=== PATIENT | female | born 1955 | race Caucasian/White ===

== ENCOUNTER 2016-10-12 20:42 | Emergency (ER) | payer MEDICARE ==
[~2016-10-12] VITALS: Ht 160 cm; Wt 158.2 kg
[~2016-10-12 20:42] MED LIST: ASPIRIN 81M81 MG/TA2 PO; HCTZ 25MG TAB25 MG PO; NO HOME MEDICATIONS; OMNICEF 300MG300 MG PO; PHENTERMINE15 MG PO; PLAVIX 75MG TAB75 MG PO; PREDNISONE20 MG PO; PROVENTIL0.09 MG/A1 IH; STOOL SOFTENER100 M2 PO; TYLENOL #4 (1 UDTAB PO; TYLENOL 325MG325 MG PO; TYLENOL ARTHRITIS; ZITHROMAX 250M250 MG PO; ZITHROMAX500 M2 PO; ZOCOR 20MG20 MG PO
[2016-10-12 20:46] VITALS: TEMP 97.9
[2016-10-12] MEDS ORDERED: ULTRAM 50MG TAB50 MG PO (21:14)
[2016-10-12] MEDS ORDERED: PERCOCET 325 MG1 TA2 PO (21:14)
[2016-10-12] MEDS ORDERED: NEURONTIN300 MG/CAP PO (21:17)
[2016-10-12 21:58] VITALS: BP 178/86; PULSE 80
== END 2016-10-12 22:00 | disposition home or self-care (01) ==
LOC: COL.ER 20:42
DX: M79.672 Pain in left foot (principal); E66.9 Obesity, unspecified; I10 Essential (primary) hypertension; E78.5 Hyperlipidemia, unspecified; Z68.44 Body mass index [BMI] 60.0-69.9, adult; Z95.9 Presence of cardiac and vascular implant and graft, unspecified; W01.0XXA Fall on same level from slipping, tripping and stumbling without subsequent striking against object, initial encounter; Y92.009 Unspecified place in unspecified non-institutional (private) residence as the place of occurrence of the external cause

== ENCOUNTER 2016-10-22 20:59 | Emergency (ER) | payer MEDICARE ==
[~2016-10-22] VITALS: Ht 160 cm; Wt 158.2 kg
[~2016-10-22 20:59] MED LIST changes: +NEURONTIN300 MG/CAP PO; +PERCOCET 325 MG1 TA2 PO; +ULTRAM 50MG TAB50 MG PO
[2016-10-22 21:05] VITALS: BP 196/86; TEMP 98.6
[2016-10-22] MEDS ORDERED: AMOXICILLIN 8751 TAB PO (21:36)
[2016-10-22 21:44] VITALS: PULSE 80
== END 2016-10-22 21:53 | disposition home or self-care (01) ==
LOC: COL.ER 20:59
DX: L03.116 Cellulitis of left lower limb (principal); L02.416 Cutaneous abscess of left lower limb; I10 Essential (primary) hypertension; Z86.39 Personal history of other endocrine, nutritional and metabolic disease

== ENCOUNTER 2016-10-24 06:05 | Inpatient (IN) | payer MEDICARE ==
[~2016-10-24] VITALS: Ht 160 cm; Wt 169.5 kg
[~2016-10-24 06:05] MED LIST changes: +AMOXICILLIN 8751 TAB PO
[2016-10-24 06:30] LABS: BASO % 0.3 % (0.0-2.0); EOS # 0.4 (0.0-0.7); EOS % 5.5 % (0-4.0); GRAN # 3.1 (1.4-6.5); GRAN % 49.3 % (42.2-75.2); HEMATOCRIT 37.1 % (37.0-47.0); HEMOGLOBIN 12.1 g/dl (12.5-16.0); LYMPH # 2.4 (1.2-3.4); LYMPH % 37.5 % (20.0-51.0); MEAN CELL VOLUME 96 fl (80.0-100.0); MEAN CORPUSCULAR HEMOGLOBIN 31 pg (27.0-31.0); MEAN CORPUSCULAR HGB CONC 33 g/dl (33.0-37.0); MEAN PLATELET VOLUME 9.6 fl (7.4-10.4); MONO # 0.5 (0.1-0.6); MONO % 7.1 % (1.7-9.3); PLATELET COUNT 177 K/mm3 (130-400); RED BLOOD COUNT 3.86 M/mm3 (4.10-5.30); REDCELL DISTRIBUTION WIDTH-CV 13.1 % (11.5-14.5); WHITE BLOOD COUNT 6.3 K/mm3 (4.8-10.8)
[2016-10-24 06:41] LABS: ADJUSTED CALCIUM 9.3 mg/dL (8.4-10.2); ALANINE AMINOTRANSFERASE 27 U/L (9-52); ALBUMIN 3.6 gm/dL (3.5-5.0); ALKALINE PHOSPHATASE 72 U/L (50-136); ANION GAP 7 mmol/L (7-16); BILIRUBIN,TOTAL 0.8 mg/dL (0.0-1.0); BLOOD UREA NITROGEN 11 mg/dL (7-17); CARBON DIOXIDE 30 mmol/L (22-30); CHLORIDE 103 mmol/L (98-107); GLUCOSE 107 mg/dL (74-106); POTASSIUM 3.2 mmol/L (3.4-5.0); SODIUM 140 mmol/L (137-145); TOTAL PROTEIN 6.6 gm/dL (6.4-8.2)
[2016-10-24 06:44] LABS: PROTHROMBIN TIME 11.6 SECONDS (9.7-12.8)
[2016-10-24 06:53] LABS: TROPONIN-I < 0.012 ng/mL (0.000-0.034)
[2016-10-24 07:49] LABS: B-TYPE NATRIURETIC PEPTIDE 370 pg/mL (0-125)
[2016-10-24] MEDS ORDERED: HCTZ 25MG TAB25 MG PO (09:06)
[2016-10-24 09:12] VITALS: BP 143/62; PULSE 73; TEMP 97.9
== END 2016-10-24 11:27 | disposition left against medical advice (07) | DRG 204 ==
LOC: COL.ER 06:05 → MEDICAL 07:17
PROVIDERS: Emergency Medicine
DX: R05 Cough (principal); Z68.44 Body mass index [BMI] 60.0-69.9, adult; R06.02 Shortness of breath; I10 Essential (primary) hypertension; E66.01 Morbid (severe) obesity due to excess calories; E87.6 Hypokalemia
CPT/HCPCS: 99222-AI; J0696

== ENCOUNTER → 2016-10-27 | Outpatient (CLI) | payer MEDICARE | LOC: COL.VAS 11:15 | DX: I51.89 Other ill-defined heart diseases (principal); R06.00 Dyspnea, unspecified ==

== ENCOUNTER → 2016-12-15 | Outpatient (CLI) | payer MEDICARE | LOC: MC.RAD 10:20 | DX: Z12.31 Encounter for screening mammogram for malignant neoplasm of breast (principal) ==

== ENCOUNTER 2017-01-06 07:39 | Emergency (ER) | payer MEDICARE ==
[~2017-01-06] VITALS: Ht 157.5 cm; Wt 150.5 kg
[2017-01-06 08:29] LABS: BASO % 0.4 % (0.0-2.0); EOS # 0.4 (0.0-0.7); EOS % 7.6 % (0-4.0); GRAN # 3.1 (1.4-6.5); GRAN % 56.8 % (42.2-75.2); HEMATOCRIT 39.1 % (37.0-47.0); HEMOGLOBIN 12.8 g/dl (12.5-16.0); LYMPH # 1.6 (1.2-3.4); LYMPH % 29.4 % (20.0-51.0); MEAN CELL VOLUME 95 fl (80.0-100.0); MEAN CORPUSCULAR HEMOGLOBIN 31 pg (27.0-31.0); MEAN CORPUSCULAR HGB CONC 33 g/dl (33.0-37.0); MEAN PLATELET VOLUME 9.3 fl (7.4-10.4); MONO # 0.3 (0.1-0.6); MONO % 5.4 % (1.7-9.3); PLATELET COUNT 215 K/mm3 (130-400); RED BLOOD COUNT 4.13 M/mm3 (4.10-5.30); WHITE BLOOD COUNT 5.5 K/mm3 (4.8-10.8)
[2017-01-06 08:46] LABS: ADJUSTED CALCIUM 9.5 mg/dL (8.4-10.2); ALANINE AMINOTRANSFERASE 25 U/L (9-52); ALBUMIN 3.5 gm/dL (3.5-5.0); ALKALINE PHOSPHATASE 77 U/L (50-136); ANION GAP 8 mmol/L (7-16); BILIRUBIN,TOTAL 0.7 mg/dL (0.0-1.0); BLOOD UREA NITROGEN 12 mg/dL (7-17); CALCIUM 9.1 mg/dL (8.4-10.2); CARBON DIOXIDE 29 mmol/L (22-30); CHLORIDE 104 mmol/L (98-107); CREATININE, serum 0.91 mg/dL (0.52-1.25); GLUCOSE 104 mg/dL (74-106); SODIUM 142 mmol/L (137-145); TOTAL PROTEIN 6.1 gm/dL (6.4-8.2)
[2017-01-06 08:49] LABS: ARTERIAL BLD GAS O2 SATURATION 93.4 % (92-100); ARTERIAL BLD GAS TCO2 CT 27.3; ARTERIAL BLOOD GAS BASE EXCESS 1.9 (-2-2); ARTERIAL BLOOD GAS HCO3 26.1 meq/L (22-26); ARTERIAL BLOOD GAS PO2 68.5 mmHg (80-100); ARTERIAL BLOOD GAS pH 7.44 (7.35-7.45); OXYHEMOGLOBIN 92.7 %
[2017-01-06 08:58] LABS: B-TYPE NATRIURETIC PEPTIDE 985 pg/mL (0-125); TROPONIN-I < 0.012 ng/mL (0.000-0.034)
[2017-01-06 09:01] LABS: PROTHROMBIN TIME 11.5 SECONDS (9.7-12.8)
[2017-01-06 09:04] LABS: PARTIAL THROMBOPLASTIN TIME 29.3 SECONDS (26.0-37.0)
[2017-01-06 10:10] VITALS: TEMP 97
[2017-01-06] MEDS ORDERED: NORVASC 10MG10 MG PO (10:25)
[2017-01-06 10:50] VITALS: BP 212/133; PULSE 93
== END 2017-01-06 10:45 | disposition home or self-care (01) ==
LOC: COL.ER 07:39
PROVIDERS: Emergency Medicine
DX: I11.0 Hypertensive heart disease with heart failure (principal); I50.9 Heart failure, unspecified; R09.02 Hypoxemia; R06.02 Shortness of breath; E66.01 Morbid (severe) obesity due to excess calories; Z68.44 Body mass index [BMI] 60.0-69.9, adult; Z95.5 Presence of coronary angioplasty implant and graft
CPT/HCPCS: J1940; Q9967

== ENCOUNTER 2017-03-29 07:41 | Emergency (ER) | payer MEDICARE, OTHER ==
[~2017-03-29] VITALS: Ht 157.5 cm; Wt 149.1 kg
[~2017-03-29 07:41] MED LIST changes: +NORVASC 10MG10 MG PO
[2017-03-29 07:46] VITALS: TEMP 97.6
[2017-03-29 10:30] VITALS: BP 184/96; PULSE 73
== END 2017-03-29 10:35 | disposition home or self-care (01) ==
LOC: COL.ER 07:41
DX: M25.571 Pain in right ankle and joints of right foot (principal); E66.01 Morbid (severe) obesity due to excess calories; I10 Essential (primary) hypertension; Z68.44 Body mass index [BMI] 60.0-69.9, adult

== ENCOUNTER 2017-04-01 07:39 | Inpatient (IN) | payer MEDICARE ==
[~2017-04-01] VITALS: Ht 157.5 cm; Wt 149.1 kg
[2017-04-01 09:44] LABS: INR 1.1 (0.8-3.0); PROTHROMBIN TIME 12.8 SECONDS (9.7-12.8)
[2017-04-01 10:36] LABS: BASO # 0.1 (0.0-0.2); BASO % 0.4 % (0.0-2.0); EOS % 0.3 % (0-4.0); GRAN # 12.1 (1.4-6.5); GRAN % 85.7 % (42.2-75.2); HEMATOCRIT 38.1 % (37.0-47.0); HEMOGLOBIN 12.2 g/dl (12.5-16.0); LYMPH # 1.2 (1.2-3.4); LYMPH % 8.7 % (20.0-51.0); MEAN CELL VOLUME 98 fl (80.0-100.0); MEAN CORPUSCULAR HEMOGLOBIN 31 pg (27.0-31.0); MEAN CORPUSCULAR HGB CONC 32 g/dl (33.0-37.0); MEAN PLATELET VOLUME 10.6 fl (7.4-10.4); MONO # 0.6 (0.1-0.6); MONO % 4.5 % (1.7-9.3); PLATELET COUNT 214 K/mm3 (130-400); REDCELL DISTRIBUTION WIDTH-CV 12.2 % (11.5-14.5)
[2017-04-01 10:41] LABS: ALBUMIN 3.3 gm/dL (3.5-5.0); BILIRUBIN,TOTAL 0.5 mg/dL (0.0-1.0); CALCIUM 9.1 mg/dL (8.4-10.2); CREATININE, serum 1.2 mg/dL (0.52-1.25); POTASSIUM 3.8 mmol/L (3.4-5.0); TOTAL PROTEIN 6.2 gm/dL (6.4-8.2)
[2017-04-01 16:09] VITALS: BP 153/83; PULSE 72; TEMP 97.4
[2017-04-01 16:24] VITALS: BP 153/81; PULSE 73
[2017-04-01 16:39] VITALS: BP 151/68; PULSE 76
== END 2017-04-01 17:10 | disposition short-term general hospital (02) | DRG 505 ==
LOC: COL.ER 07:39 → SURG 11:30
PROVIDERS: Emergency Medicine
PROC: 2W3MX1Z Immobilization of Left Lower Extremity using Splint (ICD-10-PCS; 2017-04-01)
DX: S82.871B Displaced pilon fracture of right tibia, initial encounter for open fracture type I or II (principal); S30.1XXA Contusion of abdominal wall, initial encounter; I10 Essential (primary) hypertension; S81.812A Laceration without foreign body, left lower leg, initial encounter; V47.5XXA Car driver injured in collision with fixed or stationary object in traffic accident, initial encounter; Y99.0 Civilian activity done for income or pay
CPT/HCPCS: C1713; J0295; J0690; J1100; J1170; J1885; J2270; J2405; J2704; J3010; J7030; Q9967

== ENCOUNTER 2017-09-06 13:00 | Emergency (ER) | payer MEDICARE ==
[~2017-09-06] VITALS: Ht 157.5 cm; Wt 123.2 kg
[2017-09-06 13:04] VITALS: TEMP 98.5
[2017-09-06 14:04] LABS: BASO % 0.3 % (0.0-2.0); EOS # 0.2 (0.0-0.7); EOS % 2.7 % (0-4.0); GRAN # 3.8 (1.4-6.5); GRAN % 60.1 % (42.2-75.2); HEMATOCRIT 47.5 % (37.0-47.0); HEMOGLOBIN 15.9 g/dl (12.5-16.0); LYMPH # 1.9 (1.2-3.4); LYMPH % 30.8 % (20.0-51.0); MEAN CELL VOLUME 86 fl (80.0-100.0); MEAN CORPUSCULAR HEMOGLOBIN 29 pg (27.0-31.0); MEAN CORPUSCULAR HGB CONC 34 g/dl (33.0-37.0); MEAN PLATELET VOLUME 9.6 fl (7.4-10.4); MONO # 0.4 (0.1-0.6); MONO % 5.9 % (1.7-9.3); PLATELET COUNT 252 K/mm3 (130-400); REDCELL DISTRIBUTION WIDTH-CV 13.5 % (11.5-14.5)
[2017-09-06 14:15] LABS: ACETAMINOPHEN < 10 ug/mL (10-30); ALANINE AMINOTRANSFERASE 36 U/L (9-52); ALBUMIN 4.1 gm/dL (3.5-5.0); ALCOHOL(ethanol),MEDICAL < 10 mg/dL; ALKALINE PHOSPHATASE 93 U/L (50-136); ANION GAP 11 mmol/L (7-16); AST,SGOT 42 U/L (15-37); BILIRUBIN,TOTAL 0.9 mg/dL (0.0-1.0); BLOOD UREA NITROGEN 11 mg/dL (7-17); CALCIUM 9.7 mg/dL (8.4-10.2); CARBON DIOXIDE 31 mmol/L (22-30); CHLORIDE 95 mmol/L (98-107); CREATININE, serum 0.82 mg/dL (0.52-1.25); GLUCOSE 137 mg/dL (74-106); LIPASE 24 U/L (23-300); POTASSIUM 3.7 mmol/L (3.4-5.0); SALICYLATE < 1.0 mg/dL; SODIUM 138 mmol/L (137-145); TOTAL PROTEIN 8.3 gm/dL (6.4-8.2)
[2017-09-06 14:27] LABS: TROPONIN-I < 0.012 ng/mL (0.000-0.034)
[2017-09-06] MEDS ORDERED: ATARAX50 MG PO (17:48)
[2017-09-06 18:35] VITALS: BP 151/92; PULSE 90
== END 2017-09-06 18:35 | disposition other institution (70) ==
LOC: COL.ER 13:00
PROVIDERS: Emergency Medicine
DX: F41.9 Anxiety disorder, unspecified (principal); I11.0 Hypertensive heart disease with heart failure; I50.9 Heart failure, unspecified; Z90.49 Acquired absence of other specified parts of digestive tract

== ENCOUNTER → 2017-09-17 | Outpatient (REF) ==
[~2017-09-17] MED LIST changes: +ATARAX50 MG PO
[2017-09-17 11:19] LABS: ALBUMIN 3.9 gm/dL (3.5-5.0); BILIRUBIN,TOTAL 0.7 mg/dL (0.0-1.0); CALCIUM 9.3 mg/dL (8.4-10.2); CREATININE, serum 0.77 mg/dL (0.52-1.25); POTASSIUM 3.7 mmol/L (3.4-5.0); TOTAL PROTEIN 6.8 gm/dL (6.4-8.2)
== END ==
LOC: ZCOL.LAB 10:58
PROVIDERS: Family Medicine
DX: Z01.89 Encounter for other specified special examinations (principal)

== ENCOUNTER 2018-01-14 13:36 | Emergency (ER) | payer MEDICARE ==
[~2018-01-14] VITALS: Ht 160 cm; Wt 124.8 kg
[2018-01-14 13:39] VITALS: TEMP 98.4
[2018-01-14 17:04] LABS: BASO % 0.4 % (0.0-2.0); EOS # 0.4 (0.0-0.7); EOS % 5.9 % (0-4.0); GRAN # 3.6 (1.4-6.5); GRAN % 52.6 % (42.2-75.2); HEMATOCRIT 48.1 % (37.0-47.0); HEMOGLOBIN 16.5 g/dl (12.5-16.0); LYMPH # 2.5 (1.2-3.4); MEAN CELL VOLUME 89 fl (80.0-100.0); MEAN CORPUSCULAR HEMOGLOBIN 31 pg (27.0-31.0); MEAN CORPUSCULAR HGB CONC 34 g/dl (33.0-37.0); MEAN PLATELET VOLUME 9.2 fl (7.4-10.4); MONO # 0.3 (0.1-0.6); PLATELET COUNT 215 K/mm3 (130-400); RED BLOOD COUNT 5.41 M/mm3 (4.10-5.30); REDCELL DISTRIBUTION WIDTH-CV 11.9 % (11.5-14.5)
[2018-01-14 17:14] VITALS: BP 163/67
[2018-01-14 17:17] LABS: ALANINE AMINOTRANSFERASE 27 U/L (9-52); ALKALINE PHOSPHATASE 81 U/L (50-136); ANION GAP 7 mmol/L (7-16); AST,SGOT 36 U/L (15-37); BILIRUBIN,TOTAL 0.9 mg/dL (0.0-1.0); BLOOD UREA NITROGEN 21 mg/dL (7-17); CALCIUM 9.5 mg/dL (8.4-10.2); CARBON DIOXIDE 31 mmol/L (22-30); CHLORIDE 103 mmol/L (98-107); CREATININE, serum 0.72 mg/dL (0.52-1.25); GLUCOSE 87 mg/dL (74-106); POTASSIUM 4.1 mmol/L (3.4-5.0); SODIUM 141 mmol/L (137-145); TOTAL PROTEIN 7.3 gm/dL (6.4-8.2)
[2018-01-14 17:18] LABS: ALCOHOL(ethanol),MEDICAL < 10 mg/dL; C-REACTIVE PROTEIN < 0.5 mg/dL (0.0-0.9)
[2018-01-14 18:42] VITALS: PULSE 100
== END 2018-01-14 18:43 | disposition home or self-care (01) ==
LOC: COL.ER 13:36
PROVIDERS: Family Medicine
DX: M25.571 Pain in right ankle and joints of right foot (principal); I11.0 Hypertensive heart disease with heart failure; I50.9 Heart failure, unspecified; Z90.49 Acquired absence of other specified parts of digestive tract

== ENCOUNTER 2018-01-17 01:38 | Observation (INO) | payer MEDICARE, MEDICAID ==
[~2018-01-17] VITALS: Ht 160 cm; Wt 125.0 kg
[2018-01-17 02:12] LABS: BASO % 0.4 % (0.0-2.0); EOS # 0.1 (0.0-0.7); EOS % 1.3 % (0-4.0); GRAN # 6.2 (1.4-6.5); GRAN % 72.3 % (42.2-75.2); HEMATOCRIT 46.1 % (37.0-47.0); HEMOGLOBIN 15.9 g/dl (12.5-16.0); LYMPH # 1.6 (1.2-3.4); LYMPH % 18.5 % (20.0-51.0); MEAN CELL VOLUME 88 fl (80.0-100.0); MEAN CORPUSCULAR HEMOGLOBIN 30 pg (27.0-31.0); MEAN CORPUSCULAR HGB CONC 35 g/dl (33.0-37.0); MEAN PLATELET VOLUME 9.1 fl (7.4-10.4); MONO # 0.6 (0.1-0.6); MONO % 7.1 % (1.7-9.3); PLATELET COUNT 182 K/mm3 (130-400); RED BLOOD COUNT 5.24 M/mm3 (4.10-5.30); REDCELL DISTRIBUTION WIDTH-CV 11.9 % (11.5-14.5)
[2018-01-17 02:14] LABS: COLLECTION METHOD CATHETER
[2018-01-17 02:22] LABS: MUCOUS Present /lpf; PH 5 (5-8); SQUAMOUS EPITHELIAL 0-2 /hpf; URINE APPEARANCE Clear; URINE BACTERIA None Seen /hpf; URINE BILIRUBIN Negative (NEGATIVE); URINE BLOOD 2+ (NEGATIVE); URINE CALCIUM OXALATE CRYSTAL Present /hpf; URINE COLOR Yellow; URINE GLUCOSE Negative (NEGATIVE); URINE KETONE 2+ (NEGATIVE); URINE LEUKOCYTE ESTERASE Negative (NEGATIVE); URINE NITRATE Negative (NEGATIVE); URINE PROTEIN(semi-quant) Negative (NEGATIVE)
[2018-01-17 02:26] LABS: ALANINE AMINOTRANSFERASE 34 U/L (9-52); ALKALINE PHOSPHATASE 79 U/L (50-136); ANION GAP 7 mmol/L (7-16); AST,SGOT 34 U/L (15-37); BILIRUBIN,TOTAL 1.1 mg/dL (0.0-1.0); BLOOD UREA NITROGEN 27 mg/dL (7-17); CALCIUM 9.5 mg/dL (8.4-10.2); CARBON DIOXIDE 28 mmol/L (22-30); CHLORIDE 106 mmol/L (98-107); CREATININE, serum 1.09 mg/dL (0.52-1.25); GLUCOSE 111 mg/dL (74-106); LIPASE 45 U/L (23-300); POTASSIUM 3.6 mmol/L (3.4-5.0); SODIUM 141 mmol/L (137-145); TOTAL PROTEIN 7.1 gm/dL (6.4-8.2)
[2018-01-17 02:27] LABS: C-REACTIVE PROTEIN < 0.5 mg/dL (0.0-0.9)
[2018-01-17 05:43] VITALS: BP 133/54; PULSE 74; TEMP 98.3
[2018-01-17 07:06] LABS: BASO % 0.4 % (0.0-2.0); EOS # 0.1 (0.0-0.7); EOS % 1.1 % (0-4.0); GRAN # 5.7 (1.4-6.5); GRAN % 69.6 % (42.2-75.2); HEMATOCRIT 43.8 % (37.0-47.0); HEMOGLOBIN 15.1 g/dl (12.5-16.0); LYMPH # 1.8 (1.2-3.4); LYMPH % 21.8 % (20.0-51.0); MEAN CELL VOLUME 89 fl (80.0-100.0); MEAN CORPUSCULAR HEMOGLOBIN 31 pg (27.0-31.0); MEAN CORPUSCULAR HGB CONC 35 g/dl (33.0-37.0); MEAN PLATELET VOLUME 9.2 fl (7.4-10.4); MONO # 0.6 (0.1-0.6); MONO % 6.9 % (1.7-9.3); PLATELET COUNT 171 K/mm3 (130-400); RED BLOOD COUNT 4.91 M/mm3 (4.10-5.30); REDCELL DISTRIBUTION WIDTH-CV 12.1 % (11.5-14.5)
[2018-01-17 07:13] LABS: CALCIUM 8.8 mg/dL (8.4-10.2); CREATININE, serum 1.24 mg/dL (0.52-1.25); POTASSIUM 3.9 mmol/L (3.4-5.0)
[2018-01-17 08:02] VITALS: BP 142/63; PULSE 74; TEMP 97
[2018-01-17 12:09] VITALS: BP 139/68; PULSE 83; TEMP 98.5
[2018-01-17 15:30] VITALS: BP 111/50; PULSE 71
[2018-01-17 15:45] VITALS: BP 125/63; PULSE 74
[2018-01-17 19:15] VITALS: BP 120/53; PULSE 73; TEMP 97
[2018-01-18 00:24] VITALS: BP 119/56; PULSE 64
[2018-01-18 05:27] VITALS: BP 121/63; PULSE 69
[2018-01-18 08:12] LABS: BASO % 0.5 % (0.0-2.0); EOS # 0.3 (0.0-0.7); EOS % 6.2 % (0-4.0); GRAN # 2.7 (1.4-6.5); GRAN % 49.3 % (42.2-75.2); HEMOGLOBIN 13.5 g/dl (12.5-16.0); LYMPH % 36.7 % (20.0-51.0); MEAN CELL VOLUME 92 fl (80.0-100.0); MEAN CORPUSCULAR HEMOGLOBIN 31 pg (27.0-31.0); MEAN CORPUSCULAR HGB CONC 34 g/dl (33.0-37.0); MEAN PLATELET VOLUME 9.4 fl (7.4-10.4); MONO # 0.4 (0.1-0.6); MONO % 7.1 % (1.7-9.3); PLATELET COUNT 147 K/mm3 (130-400); RED BLOOD COUNT 4.33 M/mm3 (4.10-5.30)
[2018-01-18 08:26] LABS: CALCIUM 8.6 mg/dL (8.4-10.2); CREATININE, serum 0.86 mg/dL (0.52-1.25); POTASSIUM 4.2 mmol/L (3.4-5.0)
[2018-01-18 09:14] VITALS: BP 111/58; PULSE 68; TEMP 96.5
[2018-01-18 12:33] VITALS: BP 121/42; PULSE 61; TEMP 98.2
[2018-01-18] MEDS ORDERED: MELAT3MGTAB PO (13:53)
[2018-01-18] MEDS ORDERED: ULTRAM 50MG TAB50 MG PO (13:53)
[2018-01-18] MEDS ORDERED: TYLENOL 325MG325 MG PO (13:53)
== END 2018-01-18 17:13 ==
LOC: COL.ER 01:38 → MEDICAL 01:59
PROVIDERS: Emergency Medicine; Nurse Practitioner; Physician Assistant
DX: N13.2 Hydronephrosis with renal and ureteral calculous obstruction (principal); R53.81 Other malaise; I11.0 Hypertensive heart disease with heart failure; I50.9 Heart failure, unspecified; E66.01 Morbid (severe) obesity due to excess calories; Z79.899 Other long term (current) drug therapy
CPT/HCPCS: C1769; C2617; G8978-GP; G8979-GP; J0690; J1170; J1650; J1885; J2405; J2704; J3010; J7030; Q9967

== ENCOUNTER 2018-01-18 15:18 | Inpatient (IN) | payer MEDICARE, MEDICAID ==
[~2018-01-18] VITALS: Ht 160 cm; Wt 126.2 kg
[~2018-01-18 15:18] MED LIST changes: +MELAT3MGTAB PO
[2018-01-18 19:06] VITALS: BP 139/62; PULSE 70; TEMP 98
[2018-01-19 04:44] VITALS: BP 151/78; PULSE 73; TEMP 98.2
[2018-01-19 17:10] VITALS: BP 146/78; PULSE 71; TEMP 98.1
[2018-01-20 04:07] VITALS: BP 137/59; PULSE 67; TEMP 98.3
[2018-01-20 15:54] VITALS: BP 137/66; PULSE 72; TEMP 98.3
[2018-01-21 05:52] VITALS: BP 133/74; PULSE 64
[2018-01-21 18:29] VITALS: BP 140/78; PULSE 65; TEMP 98.1
[2018-01-21 18:59] VITALS: BP 127/78; PULSE 69; TEMP 98
[2018-01-22 04:26] VITALS: BP 147/70; PULSE 69; TEMP 97.6
[2018-01-22 17:40] VITALS: BP 143/67; PULSE 71; TEMP 97.9
[2018-01-23 05:51] VITALS: BP 146/71; PULSE 72; TEMP 98.3
[2018-01-23 17:54] VITALS: BP 144/62; PULSE 70; TEMP 97.8
[2018-01-24 03:43] VITALS: BP 149/71; PULSE 64; TEMP 98.4
[2018-01-24 17:58] VITALS: BP 133/59; PULSE 69; TEMP 98.4
[2018-01-25 04:55] VITALS: BP 134/48; PULSE 75; TEMP 97.5
[2018-01-25 17:43] VITALS: BP 147/71; PULSE 79; TEMP 97.9
[2018-01-26 05:08] VITALS: BP 151/77; PULSE 72; TEMP 98
[2018-01-26 17:45] VITALS: BP 154/77; PULSE 77; TEMP 97.1
[2018-01-27 05:19] VITALS: BP 148/68; PULSE 69; TEMP 98.2
[2018-01-27 18:29] VITALS: BP 134/65; PULSE 69; TEMP 98.6
[2018-01-28 05:29] VITALS: BP 126/40; BP 146/69; PULSE 58; PULSE 71; TEMP 97.3; TEMP 97.8
[2018-01-28 18:21] VITALS: BP 158/89; PULSE 87; TEMP 97.9
[2018-01-29 03:40] VITALS: BP 129/60; PULSE 76; TEMP 98.5
[2018-01-29 16:16] VITALS: BP 141/61; PULSE 71; TEMP 97.9
[2018-01-30 03:36] VITALS: BP 143/66; PULSE 70; TEMP 98.4
[2018-01-30 15:50] VITALS: BP 129/54; PULSE 73; TEMP 97.8
[2018-01-31 04:09] VITALS: BP 139/69; PULSE 72; TEMP 98
[2018-01-31 18:18] VITALS: BP 140/67; PULSE 74; TEMP 97.4
[2018-02-01 04:18] VITALS: BP 135/62; PULSE 72; TEMP 98.4
[2018-02-01] MEDS ORDERED: DESENEX21 TP (09:12)
[2018-02-01] MEDS ORDERED: ULTRAM 50MG TAB50 MG PO (09:17)
== END 2018-02-01 15:00 | disposition home health service (06) | DRG 948 ==
DX: R53.81 Other malaise (principal); N13.0 Hydronephrosis with ureteropelvic junction obstruction; Z68.42 Body mass index [BMI] 45.0-49.9, adult; I10 Essential (primary) hypertension; E66.01 Morbid (severe) obesity due to excess calories; S82.892S Other fracture of left lower leg, sequela; S82.891S Other fracture of right lower leg, sequela; F41.9 Anxiety disorder, unspecified
CPT/HCPCS: 99222-AI; 99232-AI; 99239; J1650

== ENCOUNTER 2018-03-30 14:20 | Emergency (ER) | payer MEDICARE, MEDICAID ==
[~2018-03-30] VITALS: Ht 157.5 cm; Wt 126.8 kg
[~2018-03-30 14:20] MED LIST changes: +DESENEX21 TP
[2018-03-30 14:27] VITALS: TEMP 97.5
[2018-03-30 16:00] LABS: BASO % 0.2 % (0.0-2.0); EOS # 0.7 (0.0-0.7); EOS % 8.5 % (0-4.0); GRAN # 5.3 (1.4-6.5); GRAN % 62.2 % (42.2-75.2); HEMATOCRIT 47.1 % (37.0-47.0); LYMPH # 1.8 (1.2-3.4); LYMPH % 21.4 % (20.0-51.0); MEAN CELL VOLUME 91 fl (80.0-100.0); MEAN CORPUSCULAR HEMOGLOBIN 31 pg (27.0-31.0); MEAN CORPUSCULAR HGB CONC 34 g/dl (33.0-37.0); MEAN PLATELET VOLUME 9.6 fl (7.4-10.4); MONO # 0.6 (0.1-0.6); MONO % 7.3 % (1.7-9.3); PLATELET COUNT 226 K/mm3 (130-400); RED BLOOD COUNT 5.18 M/mm3 (4.10-5.30); REDCELL DISTRIBUTION WIDTH-CV 12.7 % (11.5-14.5)
[2018-03-30 16:02] LABS: COLLECTION METHOD CLEAN CATCH
[2018-03-30 16:11] LABS: ALBUMIN 3.3 gm/dL (3.5-5.0); BILIRUBIN,TOTAL 0.8 mg/dL (0.0-1.0); CREATININE, serum 0.98 mg/dL (0.52-1.25); POTASSIUM 3.7 mmol/L (3.4-5.0); TOTAL PROTEIN 6.1 gm/dL (6.4-8.2)
[2018-03-30 16:11] LABS: HYALINE CAST >12 /lpf; MUCOUS Present /lpf; PH 5 (5-8); SQUAMOUS EPITHELIAL >50 /hpf; URINE APPEARANCE Turbid; URINE BACTERIA Many /hpf; URINE BILIRUBIN Negative (NEGATIVE); URINE BLOOD Negative (NEGATIVE); URINE CALCIUM OXALATE CRYSTAL Present /hpf; URINE COLOR Yellow; URINE GLUCOSE Negative (NEGATIVE); URINE KETONE Negative (NEGATIVE); URINE LEUKOCYTE ESTERASE 2+ (NEGATIVE); URINE NITRATE Negative (NEGATIVE); URINE PROTEIN(semi-quant) 2+ (NEGATIVE)
[2018-03-30] MEDS ORDERED: PREDNISONE10 MG PO (16:13)
[2018-03-30 16:47] VITALS: PULSE 76
== END 2018-03-30 16:49 | disposition home or self-care (01) ==
LOC: COL.ER 14:20
PROVIDERS: Family Medicine
DX: L12.0 Bullous pemphigoid (principal); I10 Essential (primary) hypertension; E66.9 Obesity, unspecified; Z68.43 Body mass index [BMI] 50.0-59.9, adult
CPT/HCPCS: J7512

== ENCOUNTER 2018-04-23 11:36 | Emergency (ER) | payer MEDICARE, MEDICAID ==
[~2018-04-23 11:36] MED LIST changes: +PREDNISONE10 MG PO
[2018-04-23 11:40] VITALS: TEMP 97.1
[2018-04-23 12:55] LABS: HEMATOCRIT 47.1 % (37.0-47.0); HEMOGLOBIN 16.3 g/dl (12.5-16.0); MEAN CELL VOLUME 89 fl (80.0-100.0); MEAN CORPUSCULAR HEMOGLOBIN 31 pg (27.0-31.0); MEAN CORPUSCULAR HGB CONC 35 g/dl (33.0-37.0); MEAN PLATELET VOLUME 9.9 fl (7.4-10.4); PLATELET COUNT 96 K/mm3 (130-400); RED BLOOD COUNT 5.32 M/mm3 (4.10-5.30); REDCELL DISTRIBUTION WIDTH-CV 12.1 % (11.5-14.5)
[2018-04-23 13:09] LABS: BILIRUBIN,TOTAL 0.9 mg/dL (0.0-1.0); C-REACTIVE PROTEIN 8.9 mg/dL (0.0-0.9); CALCIUM 7.8 mg/dL (8.4-10.2); CREATININE, serum 0.94 mg/dL (0.52-1.25); MAGNESIUM 1.9 mg/dL (1.6-2.3)
[2018-04-23 13:17] LABS: TROPONIN-I 0.02 ng/mL (0.000-0.035)
[2018-04-23 13:19] LABS: BAND 25 % (0-10); EOSINOPHIL 1 % (0-4); NEUTROPHILS 54 % (42.0-75.2)
[2018-04-23 13:20] LABS: LYMPHOCYTE 17 % (20.0-51.0)
[2018-04-23 13:22] LABS: ERYTHROCYTE SEDIMENTATION RATE 11 mm/hr (0-30); PLATELET ESTIMATE NORMAL (NORMAL); POTASSIUM 2.9 mmol/L (3.4-5.0)
[2018-04-23 15:07] LABS: MUCOUS Present /lpf; PH 5 (5-8); URINE APPEARANCE Hazy; URINE BACTERIA None Seen /hpf; URINE BILIRUBIN Negative (NEGATIVE); URINE BLOOD Negative (NEGATIVE); URINE COLOR Yellow; URINE GLUCOSE Negative (NEGATIVE); URINE KETONE 1+ (NEGATIVE); URINE LEUKOCYTE ESTERASE Negative (NEGATIVE); URINE NITRATE Negative (NEGATIVE); URINE PROTEIN(semi-quant) 1+ (NEGATIVE); URINE RBC 0-2 /hpf
[2018-04-23 15:08] LABS: COLLECTION METHOD CATHETER
[2018-04-23 16:48] VITALS: BP 142/97; PULSE 91
== END 2018-04-23 17:30 | disposition short-term general hospital (02) ==
LOC: COL.ER 11:36
PROVIDERS: Emergency Medicine
DX: E86.0 Dehydration (principal); L98.9 Disorder of the skin and subcutaneous tissue, unspecified; I10 Essential (primary) hypertension; E66.01 Morbid (severe) obesity due to excess calories
CPT/HCPCS: J3480; J7030; J7050

== ENCOUNTER 2018-06-06 08:27 | Inpatient (IN) | payer MEDICARE, MEDICAID ==
[~2018-06-06] VITALS: Ht 160 cm; Wt 117.7 kg
[2018-06-06 09:04] LABS: BASO % 0.2 % (0.0-2.0); EOS # 0.7 (0.0-0.7); GRAN # 5.6 (1.4-6.5); GRAN % 65.3 % (42.2-75.2); HEMATOCRIT 44.9 % (37.0-47.0); HEMOGLOBIN 14.9 g/dl (12.5-16.0); LYMPH # 1.6 (1.2-3.4); MEAN CELL VOLUME 92 fl (80.0-100.0); MEAN CORPUSCULAR HEMOGLOBIN 31 pg (27.0-31.0); MEAN CORPUSCULAR HGB CONC 33 g/dl (33.0-37.0); MEAN PLATELET VOLUME 8.7 fl (7.4-10.4); MONO # 0.6 (0.1-0.6); MONO % 6.9 % (1.7-9.3); PLATELET COUNT 338 K/mm3 (130-400); RED BLOOD COUNT 4.87 M/mm3 (4.10-5.30); REDCELL DISTRIBUTION WIDTH-CV 13.6 % (11.5-14.5)
[2018-06-06 09:16] LABS: ALANINE AMINOTRANSFERASE 8 U/L (9-52); ALBUMIN 2.6 gm/dL (3.5-5.0); ALKALINE PHOSPHATASE 72 U/L (50-136); ANION GAP 10 mmol/L (7-16); AST,SGOT 29 U/L (15-37); BLOOD UREA NITROGEN 14 mg/dL (7-17); C-REACTIVE PROTEIN 3.1 mg/dL (0.0-0.9); CALCIUM 8.2 mg/dL (8.4-10.2); CARBON DIOXIDE 24 mmol/L (22-30); CHLORIDE 101 mmol/L (98-107); CREATININE, serum 1.13 (0.52-1.25); GLUCOSE 116 mg/dL (74-106); POTASSIUM 4.4 mmol/L (3.4-5.0); SODIUM 134 mmol/L (137-145); TOTAL PROTEIN 5.8 gm/dL (6.4-8.2)
[2018-06-06 09:26] LABS: TROPONIN-I < 0.012 ng/mL (0.000-0.035)
[2018-06-06 10:22] LABS: COLLECTION METHOD CATHETER
[2018-06-06 10:54] LABS: HYALINE CAST >12 /lpf; MUCOUS Present /lpf; PH 5 (5-8); SQUAMOUS EPITHELIAL 0-2 /hpf; URINE APPEARANCE Cloudy; URINE BACTERIA None Seen /hpf; URINE BILIRUBIN Positive (NEGATIVE); URINE BLOOD 1+ (NEGATIVE); URINE COLOR Amber; URINE GLUCOSE 1+ (NEGATIVE); URINE KETONE Trace (NEGATIVE); URINE LEUKOCYTE ESTERASE Negative (NEGATIVE); URINE NITRATE Negative (NEGATIVE); URINE PROTEIN(semi-quant) 2+ (NEGATIVE); URINE UROBILINOGEN >=4.0 mg/dL (NEGATIVE)
[2018-06-06 11:22] LABS: INR 1.1 (0.8-3.0); PROTHROMBIN TIME 12.3 SECONDS (9.7-12.8)
[2018-06-06] MEDS ORDERED: ATARAX 10MG10 MG/TAB PO (11:37)
[2018-06-06] MEDS ORDERED: DOXYCYCLINE 10100 MG PO (11:37)
[2018-06-06] MEDS ORDERED: TRIAMC 0.1 454 TOP (11:38)
[2018-06-06 13:07] VITALS: BP 130/52; PULSE 95; TEMP 97.9
--- NOTE | 2018-06-06 14:48 | NUR ---
Patient arrived from ER to room 357 at 1320. Assisted from gurney to bed with assistance of 3 and slide board. Patient states she is hungry, assisted with ordering meal. Call light is within reach.
[2018-06-06 16:17] VITALS: BP 141/67; PULSE 92; TEMP 97.7
--- NOTE | 2018-06-06 17:33 | NUR ---
Patient is resting in bed on her back. She is looking over food menu, offered assistance to order bu stated she could do it herself. No other needs verbalized. Call light is within reach.
--- NOTE | 2018-06-06 20:30 | NUR ---
Initial shift assessment done- denies pain.. states having some itching from the sores all over body- states this is nothing new-- will give the Atarax as ordered,, has blisters/sores/scabs all over arms/legs/torso-- [place] to DD with clear yellow urine-- Tele on
[2018-06-06 21:33] VITALS: BP 136/63; PULSE 93; TEMP 99.2
[2018-06-07] VITALS (12 sets, daily range): BP systolic 123–160; BP diastolic 53–97; PULSE 20–841; TEMP 97.2–98.4
[2018-06-07 06:01] LABS: BASO % 0.2 % (0.0-2.0); GRAN # 3.6 (1.4-6.5); GRAN % 75.8 % (42.2-75.2); LYMPH % 20.9 % (20.0-51.0); MEAN CELL VOLUME 93 fl (80.0-100.0); MEAN CORPUSCULAR HGB CONC 33 g/dl (33.0-37.0); MEAN PLATELET VOLUME 9.2 fl (7.4-10.4); MONO # 0.1 (0.1-0.6); MONO % 2.7 % (1.7-9.3); PLATELET COUNT 250 K/mm3 (130-400); RED BLOOD COUNT 3.84 M/mm3 (4.10-5.30); REDCELL DISTRIBUTION WIDTH-CV 13.8 % (11.5-14.5)
[2018-06-07 06:08] LABS: HEMATOCRIT 35.7 % (37.0-47.0); HEMOGLOBIN 11.9 g/dl (12.5-16.0); MEAN CORPUSCULAR HEMOGLOBIN 31 pg (27.0-31.0)
[2018-06-07 06:14] LABS: ANION GAP 6 mmol/L (7-16); BLOOD UREA NITROGEN 17 mg/dL (7-17); CALCIUM 7.8 mg/dL (8.4-10.2); CARBON DIOXIDE 27 mmol/L (22-30); CHLORIDE 102 mmol/L (98-107); CHOLESTEROL 113 mg/dL (120-200); CHOLESTEROL RISK RATIO 3.4; CREATININE, serum 1.48 (0.52-1.25); GLUCOSE 167 mg/dL (74-106); HDL CHOLESTEROL 33 mg/dL; LDL CHOLESTEROL 63 mg/dL; POTASSIUM 3.6 mmol/L (3.4-5.0); SODIUM 135 mmol/L (137-145); TRIGLYCERIDE 84 mg/dL
--- NOTE | 2018-06-07 06:20 | NUR ---
Quiet night- NPO for Lexiscan. No changes- VSS
[2018-06-07 06:23] LABS: TROPONIN-I < 0.012 ng/mL (0.000-0.035)
--- NOTE | 2018-06-07 08:45 | NUR ---
PT TAKEN VIA CART TO [facility] FOR LEXISCAN.
--- NOTE | 2018-06-07 09:00 | NUR ---
Pt is out of room to go to [facility]. 0800 meds and 0900 meds held until patient returns.
--- NOTE | 2018-06-07 09:20 | NUR ---
pt in bed with lights off. Awakens easily. Alert and oriented x4. multiple areas of scabbing from itching. Areas under both breasts and under abdominal folds with excoriation. pt states pain level is a zero. Urinary catheter is draining clear yellow urine. Area to right great toe with a raised blister. Primary nurse is Norma. VSS. Patient is NPO at this time until after Lexiscan.
--- NOTE | 2018-06-07 10:36 | NUR ---
PT RETURNED FROM [facility] VIA CART.
--- NOTE | 2018-06-07 11:50 | NUR ---
SW attended clinical rounds to discuss discharge planning. Patient is very tearful because she is frustrated with being weak and tired. Patient's PCP is Dr Lagos and she obtains prescriptions from [facility] via mail. Patient uses a walker for ambulation or a powerchair. Patient has been receiving home health services through [facility]. Patient reports she sometimes does not have food in the home because she is not able to get out to doing any grocery shopping and that is why she has not been taking some of her meds that recommend taking with food. SW inquired if she has any family around that can help but she reports her niece is busy and she does not like asking for help but will if needed. Doctor addressed patient likley needing post acute rehab. Patient has been to [facility] and would like to go there again. SW met with patient afterwards and provided the medicare.gov resource julio for chcf facilities. Patient signed choice form for 1.[facility] 2. [facility] 3. [facility]. Patient will be seen by PT/OT and will give their recommendations. [facility] will also be consulted for a screen. SW will continue to follow.
--- NOTE | 2018-06-07 13:44 | NUR ---
Primary nurse was assisted with [phone] patient care by [employer] [facility] Maritza Black and [employer] instructor Monserrat Brown RN-.
--- NOTE | 2018-06-07 19:10 | NUR ---
Pt resting with HOB elevated. Denies pain at this time. Lungs clear, respirations unlabored. Abdomen is soft, nontender. BS+. Pt has multiple lesions and blisters on body. All skin folds are also red and excoriated. Pt reports itching. L AC INT DCd per patient request. TERE PICC line with IVF infusing. No needs noted. Will continue to monitor.
[2018-06-08] VITALS: BP 135/58; PULSE 90; TEMP 97.9
[2018-06-08 04:00] VITALS: BP 121/65; PULSE 88; TEMP 98.2
[2018-06-08 06:34] LABS: BASO % 0.1 % (0.0-2.0); GRAN # 7.7 (1.4-6.5); HEMOGLOBIN 11.3 g/dl (12.5-16.0); LYMPH # 1.8 (1.2-3.4); LYMPH % 17.9 % (20.0-51.0); MEAN CELL VOLUME 94 fl (80.0-100.0); MEAN CORPUSCULAR HEMOGLOBIN 31 pg (27.0-31.0); MEAN CORPUSCULAR HGB CONC 33 g/dl (33.0-37.0); MEAN PLATELET VOLUME 8.9 fl (7.4-10.4); MONO # 0.3 (0.1-0.6); MONO % 3.4 % (1.7-9.3); PLATELET COUNT 259 K/mm3 (130-400); RED BLOOD COUNT 3.67 M/mm3 (4.10-5.30); REDCELL DISTRIBUTION WIDTH-CV 13.9 % (11.5-14.5)
[2018-06-08 06:37] LABS: HEMATOCRIT 34.3 % (37.0-47.0)
--- NOTE | 2018-06-08 06:40 | NUR ---
Pt sleeping this AM. Pt slept periodically throughout the night. No distress noted. Pt was up x2 to BSC without difficulty. Void and BM x2. Attempted to collect wound culture, but no open wounds were noted.
[2018-06-08 06:48] LABS: CALCIUM 7.7 mg/dL (8.4-10.2); CREATININE, serum 1.43 (0.52-1.25); POTASSIUM 3.8 mmol/L (3.4-5.0)
[2018-06-08 08:10] VITALS: BP 136/68; PULSE 88; TEMP 97.6
--- NOTE | 2018-06-08 11:00 | NUR ---
Pt alert and oriented. Pt has multiple scabs and blisters all over her body. No open scabs noted. Pt wound culture taken in popliteal area per Dr. Hanna crawford. Pt denies pain. Pt independently moves in bed. Pt call for assistance x 1 to bathroom. Pt has call light in reach.
[2018-06-08 11:47] VITALS: BP 128/71; PULSE 88; TEMP 97.5
--- NOTE | 2018-06-08 11:50 | NUR ---
Visited, provided spiritual care, and prayed with the patient.
[2018-06-08 15:13] VITALS: BP 129/67; PULSE 91; TEMP 97.8
--- NOTE | 2018-06-08 19:18 | NUR ---
Pt alert and oriented and stable this shift. Pt scabs and blisters remain and no new open areas noted. Pt PICC patent and no infiltration noted. Pt denies pain. Pt has friend at bedside. Pt has call light in reach.
[2018-06-08 21:38] VITALS: BP 124/58; PULSE 86; TEMP 98
[2018-06-09] VITALS (7 sets, daily range): BP systolic 125–158; BP diastolic 66–98; PULSE 78–94; TEMP 97.3–98.2
--- NOTE | 2018-06-09 05:26 | NUR ---
PT HAD UNEVENTFUL NOC. NO NOTED C/O PAIN. AMBULATED WELL TO BATHROOM DURING NOC. THIS NURSE APPLIED SMALL MEPALEX TO OPEN AREA ON LT BUTTOX CHECK PER PT REQUEST. NO OTHER ISSUES OR CONSERNS VOICED OVERNIGHT. PLEASENT AND COOPERATIVE WITH CARES.
[2018-06-09 06:55] LABS: BASO % 0.1 % (0.0-2.0); GRAN # 7.9 (1.4-6.5); GRAN % 72.2 % (42.2-75.2); HEMOGLOBIN 11.4 g/dl (12.5-16.0); LYMPH # 2.4 (1.2-3.4); LYMPH % 21.7 % (20.0-51.0); MEAN CELL VOLUME 93 fl (80.0-100.0); MEAN CORPUSCULAR HEMOGLOBIN 30 pg (27.0-31.0); MEAN CORPUSCULAR HGB CONC 33 g/dl (33.0-37.0); MEAN PLATELET VOLUME 8.8 fl (7.4-10.4); MONO # 0.6 (0.1-0.6); MONO % 5.2 % (1.7-9.3); PLATELET COUNT 260 K/mm3 (130-400); RED BLOOD COUNT 3.75 M/mm3 (4.10-5.30); REDCELL DISTRIBUTION WIDTH-CV 13.8 % (11.5-14.5)
[2018-06-09 06:56] LABS: HEMATOCRIT 34.8 % (37.0-47.0)
[2018-06-09 07:13] LABS: CALCIUM 7.9 mg/dL (8.4-10.2); CREATININE, serum 1.49 (0.52-1.25); POTASSIUM 4.1 mmol/L (3.4-5.0)
--- NOTE | 2018-06-09 11:28 | NUR ---
Pt stable this am. Pt alert and oriented. Pt denies pain. Pt up with PT this am and able to walk 150ft with SBA per PT. Pt denies any SOB. Pt skin remains scabbed and blisters noted all over. Pt has open area noted on left buttuck covered with vaseline gauze and mepilex. Pt given bed bath today and all skin folds cleansed and dried and applied desenex. Pt up to chair this am for breakfast without issue and ate 100%. Pt has call light in reach.
--- NOTE | 2018-06-09 19:27 | NUR ---
Pt stable this afternoon. Pt up to chair for meals and back to bed. Pt ambulated SBA with walker to bathroom. Pt denies pain. Pt alert and oriented and good appetite. Pt denies SOB. Pt has call light in reach and denies needs.
--- NOTE | 2018-06-09 19:34 | NUR ---
Initial shift assessment done- denies pain, states she is itching and requests just some lotion - does not want benadryl at this time. States ate a good supper tonight.
[2018-06-10 03:12] VITALS: BP 142/76; PULSE 90; TEMP 97.5
--- NOTE | 2018-06-10 05:25 | NUR ---
Did get one dose of Benadryl tonight for the itching- no other requests, VSS
[2018-06-10 06:21] LABS: GRAN # 6.3 (1.4-6.5); GRAN % 66.7 % (42.2-75.2); HEMOGLOBIN 11.6 g/dl (12.5-16.0); LYMPH # 2.4 (1.2-3.4); LYMPH % 25.3 % (20.0-51.0); MEAN CELL VOLUME 93 fl (80.0-100.0); MEAN CORPUSCULAR HEMOGLOBIN 31 pg (27.0-31.0); MEAN CORPUSCULAR HGB CONC 33 g/dl (33.0-37.0); MEAN PLATELET VOLUME 8.9 fl (7.4-10.4); MONO # 0.6 (0.1-0.6); MONO % 6.8 % (1.7-9.3); PLATELET COUNT 260 K/mm3 (130-400); REDCELL DISTRIBUTION WIDTH-CV 13.6 % (11.5-14.5)
[2018-06-10 06:23] LABS: HEMATOCRIT 35.3 % (37.0-47.0)
[2018-06-10 06:32] LABS: CREATININE, serum 1.3 (0.52-1.25); POTASSIUM 4.2 mmol/L (3.4-5.0)
--- NOTE | 2018-06-10 07:10 | NUR ---
Received report, patient is resting in bed with eyes closed. Respirations even and nonlabored. Call light is within reach.
[2018-06-10 07:20] VITALS: BP 140/71; PULSE 90; TEMP 97.7
--- NOTE | 2018-06-10 10:58 | NUR ---
MARTA spoke with IPR director and she reports patient is too functional for [facility]. Patient is walking 300 ft and is SBA/Mod I. MARTA also contacted [facility] and [facility] and they report, patient does not have anything to skill her for.
[2018-06-10 12:11] VITALS: BP 152/76; PULSE 74; TEMP 97.8
[2018-06-10] MEDS ORDERED: DIFLUCAN150 MG PO (12:45)
[2018-06-10] MEDS ORDERED: ASPIRIN E.C. 8181 MG PO (12:45)
[2018-06-10] MEDS ORDERED: BENADRYL25 M2 PO (12:46)
[2018-06-10] MEDS ORDERED: PREDNISONE20 MG PO (12:49)
[2018-06-10] MEDS ORDERED: DESENEX21 TP (12:50)
--- NOTE | 2018-06-10 13:24 | NUR ---
MARTA attended clinical rounds. Patient will discharge home today with home health services. MARTA provided medicare.gov home health resource list. Patient would like to continue receiving home health services through [facility] for senior living, PT and OT. MARTA will fax referral. MARTA presented IM to patient. She signed but did not want a copy. MARTA contacted Jaye with [facility] and faxed referral. MARTA also mentioned that patient has had trouble in the past with obtaining groceries. Jaye reports this has been brought up in the past and [employer] will provide help with that. MARTA will fax D/C orders once they're completed.
--- NOTE | 2018-06-10 18:39 | NUR ---
Patient discharged home, given discharge instructions. Friend gave ride home and picked up medications.
== END 2018-06-10 18:10 | disposition home health service (06) | DRG 596 ==
LOC: COL.ER 08:27 → MEDICAL 11:08
PROVIDERS: Emergency Medicine; Hospitalist; Physician Assistant; ADMIT Hospitalist
PROC: 02HV33Z Insertion of Infusion Device into Superior Vena Cava, Percutaneous Approach (ICD-10-PCS; principal; 2018-06-06)
DX: L12.0 Bullous pemphigoid (principal); Z68.41 Body mass index [BMI] 40.0-44.9, adult; E87.2 Acidosis; E87.1 Hypo-osmolality and hyponatremia; N17.9 Acute kidney failure, unspecified; B37.2 Candidiasis of skin and nail; I12.9 Hypertensive chronic kidney disease with stage 1 through stage 4 chronic kidney disease, or unspecified chronic kidney disease; N18.9 Chronic kidney disease, unspecified; E86.0 Dehydration; E66.01 Morbid (severe) obesity due to excess calories; G47.33 Obstructive sleep apnea (adult) (pediatric)
CPT/HCPCS: 99222-AI; 99233-AI; A9500; C1751; J1450; J1644; J1650; J2543; J7030; J7512

== ENCOUNTER 2018-07-12 11:00 | Emergency (ER) | payer MEDICARE, OTHER ==
[~2018-07-12] VITALS: Ht 157.5 cm; Wt 125.0 kg
[~2018-07-12 11:00] MED LIST changes: +ASPIRIN E.C. 8181 MG PO; +ATARAX 10MG10 MG/TAB PO; +BENADRYL25 M2 PO; +DIFLUCAN150 MG PO; +DOXYCYCLINE 10100 MG PO; +TRIAMC 0.1 454 TOP
[2018-07-12 11:54] LABS: COLLECTION METHOD CATHETER
[2018-07-12 12:04] LABS: MUCOUS Present /lpf; PH 5 (5-8); URINE APPEARANCE Hazy; URINE BACTERIA None Seen /hpf; URINE BILIRUBIN Negative (NEGATIVE); URINE BLOOD Negative (NEGATIVE); URINE COLOR Yellow; URINE GLUCOSE Negative (NEGATIVE); URINE KETONE Trace (NEGATIVE); URINE LEUKOCYTE ESTERASE Negative (NEGATIVE); URINE NITRATE Negative (NEGATIVE); URINE PROTEIN(semi-quant) Negative (NEGATIVE); URINE RBC 0-2 /hpf; URINE UROBILINOGEN Negative (NEGATIVE)
[2018-07-12 12:54] LABS: BASO % 0.3 % (0.0-2.0); EOS # 0.4 (0.0-0.7); EOS % 5.5 % (0-4.0); GRAN # 4.8 (1.4-6.5); GRAN % 61.8 % (42.2-75.2); HEMATOCRIT 37.3 % (37.0-47.0); HEMOGLOBIN 12.5 g/dl (12.5-16.0); LYMPH # 2.1 (1.2-3.4); LYMPH % 26.9 % (20.0-51.0); MEAN CELL VOLUME 93 fl (80.0-100.0); MEAN CORPUSCULAR HEMOGLOBIN 31 pg (27.0-31.0); MEAN CORPUSCULAR HGB CONC 34 g/dl (33.0-37.0); MEAN PLATELET VOLUME 8.4 fl (7.4-10.4); MONO # 0.4 (0.1-0.6); MONO % 5.1 % (1.7-9.3); PLATELET COUNT 369 K/mm3 (130-400); REDCELL DISTRIBUTION WIDTH-CV 13.2 % (11.5-14.5)
[2018-07-12 13:00] LABS: ALANINE AMINOTRANSFERASE 7 U/L (9-52); ALBUMIN 2.2 gm/dL (3.5-5.0); ALKALINE PHOSPHATASE 71 U/L (50-136); ANION GAP 9 mmol/L (7-16); AST,SGOT 17 U/L (15-37); BILIRUBIN,TOTAL 0.6 mg/dL (0.0-1.0); BLOOD UREA NITROGEN 12 mg/dL (7-17); C-REACTIVE PROTEIN 5.6 mg/dL (0.0-0.9); CALCIUM 7.8 mg/dL (8.4-10.2); CARBON DIOXIDE 24 mmol/L (22-30); CHLORIDE 101 mmol/L (98-107); CREATININE, serum 0.96 (0.52-1.25); GLUCOSE 98 mg/dL (74-106); POTASSIUM 4.2 mmol/L (3.4-5.0); SODIUM 134 mmol/L (137-145); TOTAL PROTEIN 4.9 gm/dL (6.4-8.2)
[2018-07-12 13:05] LABS: INR 1.1 (0.8-3.0); PROTHROMBIN TIME 12.9 SECONDS (9.7-12.8)
[2018-07-12 13:10] LABS: TROPONIN-I < 0.012 ng/mL (0.000-0.035)
[2018-07-12] MEDS ORDERED: DOXYCYCLINE 10100 MG PO (14:49)
--- NOTE | 2018-07-12 14:51 | NUR ---
MARTA responded to an ED consult for home resources. In the past, patient has received home health services through [facility] but patient reports they didn't do much for her. Patient would like to receive those services again if they are able to see her more than last time. MRATA contacted Jaye from [facility] and she reports they can accept her as a patient again. MARTA faxed orders to [facility] and conacted patient's friend to inquire if she was available to take patient home. Nichol reports she will arrive shortly after 5pm. MARTA reported this information back to doctor.
[2018-07-12 16:31] VITALS: BP 125/77; PULSE 103; TEMP 97.1
== END 2018-07-12 16:31 | disposition home or self-care (01) ==
LOC: COL.ER 11:00
PROVIDERS: Emergency Medicine
DX: R53.81 Other malaise (principal); Z90.49 Acquired absence of other specified parts of digestive tract; Z79.82 Long term (current) use of aspirin
CPT/HCPCS: J2405; J7030

== ENCOUNTER 2018-08-03 16:53 | Inpatient (IN) | payer MEDICARE, OTHER ==
[2018-08-03] VITALS: BP 135/76; PULSE 110; TEMP 97.7
[~2018-08-03] VITALS: Ht 157.5 cm; Wt 96.9 kg
[2018-08-03 18:28] LABS: BASO % 0.2 % (0.0-2.0); EOS # 0.5 (0.0-0.7); EOS % 6.2 % (0-4.0); GRAN # 4.1 (1.4-6.5); GRAN % 49.7 % (42.2-75.2); HEMOGLOBIN 12.9 g/dl (12.5-16.0); LYMPH # 2.9 (1.2-3.4); LYMPH % 35.9 % (20.0-51.0); MEAN CELL VOLUME 93 fl (80.0-100.0); MEAN CORPUSCULAR HEMOGLOBIN 32 pg (27.0-31.0); MEAN CORPUSCULAR HGB CONC 34 g/dl (33.0-37.0); MEAN PLATELET VOLUME 8.2 fl (7.4-10.4); MONO # 0.6 (0.1-0.6); MONO % 7.6 % (1.7-9.3); PLATELET COUNT 363 K/mm3 (130-400); RED BLOOD COUNT 4.09 M/mm3 (4.10-5.30); REDCELL DISTRIBUTION WIDTH-CV 13.4 % (11.5-14.5)
[2018-08-03 19:08] LABS: COLLECTION METHOD CATHETER
[2018-08-03 19:10] LABS: ALANINE AMINOTRANSFERASE 8 U/L (9-52); ALBUMIN 2.3 gm/dL (3.5-5.0); ALKALINE PHOSPHATASE 96 U/L (50-136); ANION GAP 9 mmol/L (7-16); AST,SGOT 46 U/L (15-37); BLOOD UREA NITROGEN 13 mg/dL (7-17); C-REACTIVE PROTEIN 4.9 mg/dL (0.0-0.9); CALCIUM 7.7 mg/dL (8.4-10.2); CARBON DIOXIDE 24 mmol/L (22-30); CHLORIDE 102 mmol/L (98-107); CREATINE KINASE 29 U/L (30-135); CREATININE, serum 0.88 (0.52-1.25); GLUCOSE 96 mg/dL (74-106); POTASSIUM 4.6 mmol/L (3.4-5.0); SODIUM 134 mmol/L (137-145); TOTAL PROTEIN 5.4 gm/dL (6.4-8.2); TROPONIN-I < 0.012 ng/mL (0.000-0.035)
[2018-08-03 19:16] LABS: MUCOUS Present /lpf; PH 5 (5-8); SQUAMOUS EPITHELIAL 0-2 /hpf; URINE APPEARANCE Hazy; URINE BACTERIA None Seen /hpf; URINE BILIRUBIN Negative (NEGATIVE); URINE BLOOD 2+ (NEGATIVE); URINE COLOR Amber; URINE GLUCOSE Negative (NEGATIVE); URINE KETONE Trace (NEGATIVE); URINE LEUKOCYTE ESTERASE Negative (NEGATIVE); URINE NITRATE Negative (NEGATIVE); URINE PROTEIN(semi-quant) 1+ (NEGATIVE); URINE RBC >50 /hpf; URINE UROBILINOGEN Negative (NEGATIVE)
[2018-08-03 22:21] VITALS: BP 135/76; PULSE 110; TEMP 97.7
[2018-08-03 22:23] VITALS: BP 136/76; PULSE 112; TEMP 97.7
[2018-08-03 23:00] VITALS: BP 135/76; PULSE 110; TEMP 97.7
[2018-08-03] MEDS ORDERED: ATARAX 25MG25 MG/TAB PO (23:22)
[2018-08-03] MEDS ORDERED: CELEXA 20MG20 MG/TAB (23:23)
--- NOTE | 2018-08-03 23:30 | NUR ---
Admitted to medical floor from ER- having weakness, dehydration-unable to care for herself at home- has autoimmune skin Dx - has open areas/scabs some small some larger- all over entire body- has intense itching at times-pt on Atarax to help with itching-- pt put on antibiotics- started tonight- had small amout loose stool. IV fluids of NS at 125cc/hr
[2018-08-04 03:52] VITALS: BP 120/65; PULSE 107; TEMP 98.2
--- NOTE | 2018-08-04 06:30 | NUR ---
Quiet night- did sleep well,, using bedpan -voiding dark urine, VSS.
[2018-08-04 06:52] LABS: BASO % 0.4 % (0.0-2.0); EOS # 0.9 (0.0-0.7); EOS % 12.1 % (0-4.0); GRAN # 2.4 (1.4-6.5); GRAN % 33.6 % (42.2-75.2); HEMOGLOBIN 11.1 g/dl (12.5-16.0); LYMPH # 3.2 (1.2-3.4); LYMPH % 44.4 % (20.0-51.0); MEAN CELL VOLUME 96 fl (80.0-100.0); MEAN CORPUSCULAR HEMOGLOBIN 31 pg (27.0-31.0); MEAN CORPUSCULAR HGB CONC 33 g/dl (33.0-37.0); MONO # 0.7 (0.1-0.6); MONO % 9.2 % (1.7-9.3); PLATELET COUNT 286 K/mm3 (130-400); RED BLOOD COUNT 3.54 M/mm3 (4.10-5.30); REDCELL DISTRIBUTION WIDTH-CV 13.5 % (11.5-14.5)
[2018-08-04 06:58] LABS: HEMATOCRIT 33.9 % (37.0-47.0)
--- NOTE | 2018-08-04 07:00 | NUR ---
Patient incontinent. Assisted aide in cleaning and changing patient. Assessment completed at this time. Lung sounds diminished throughout. Heart reg rhythm and sound, tachy. Radial pulses strong bilaterally. Patient is obese, generalized edemea, pedal pulses difficult to palpate. Patient entire body covered in open sores and blisters. Back has scars from previous sores. Patient has mouth sore, difficult to open mouth, able to eat though per patient. Patient does not ambulate, able to roll side to side with assist. Hand compactor driver unequal and left hand weak. Patient on room air. VSS. Left subclavian IV, fluids infusing, no complications. No other needs at this time. Call light within reach.
[2018-08-04 07:02] LABS: CALCIUM 7.2 mg/dL (8.4-10.2); CREATININE, serum 0.88 (0.52-1.25); POTASSIUM 3.4 mmol/L (3.4-5.0)
[2018-08-04 07:17] VITALS: BP 123/73; PULSE 108; TEMP 97.7
[2018-08-04 07:33] LABS: TSH w REFLEX 4.28 uIU/mL (0.465-4.680)
--- NOTE | 2018-08-04 11:05 | NUR ---
Plan is to go to a SNF for short term rehab and possible LTC. SW met with patient about plan of care upon DC. Patient reports that she resides alone. Patient reports that she used [facility] in the past but does not want to go back there. Patient reports that she resides in [place] and her support is her DTR and SON in-law Ellie Reeves . Patient reports RX from [facility] that can deliver. Patient reports PCP is Dr. Lagos. Patient reports that use of a walker and turcios-round for mobility. SW received referral for placement. SW dicussed options with patient. Patients choice 1. [facility] sent, 2. [facility] and sent 3. [facility] sent. Patient educated on 24-72 hours before knowing statues on acceptance. Educated patient on needing 3 mids for placement. Patient reports that she is able to transport but not well.Patient denies the use of any other DME. Patient reports that her Dtr Lisbet Thomas is her DPOA. Action: To continue to follow-up for placement response.
[2018-08-04 11:38] VITALS: BP 107/65; PULSE 101; TEMP 98.4
--- NOTE | 2018-08-04 12:24 | NUR ---
[facility] has declined placement for patient, indicated she was previously declined with no other explaination. Waiting on [facility] and [facility] decision.
[2018-08-04 19:57] VITALS: BP 139/73; PULSE 101; TEMP 98.4
--- NOTE | 2018-08-04 19:59 | NUR ---
Patient has had uneventful day. Denies pain. Sat on edge of bed with PT earlier today, did not ambulate. VSS all day. Denies needs at this time. Call light within reach. Report given to BONNIE Venegas.
--- NOTE | 2018-08-04 20:45 | NUR ---
Shift assessment complete. Pt resting in bed, awake, a&o, cooperative c cares. Pt denies pain but reports continued itching; PRN atarax admin per pt req. Pt denies any other c/o at this time. IV s complication. Pt denies further needs. Call light in reach, bed alarm on. Will continue to monitor.
[2018-08-05] VITALS (7 sets, daily range): BP systolic 114–143; BP diastolic 7–87; PULSE 94–102; TEMP 97.4–98.7
--- NOTE | 2018-08-05 06:18 | NUR ---
Pt resting in bed, condition unchanged. Pt has rested well this shift c very few needs. No needs at this time. Call light in reach, bed alarm on.
--- NOTE | 2018-08-05 07:15 | NUR ---
Report received from BONNIE Ly. PT resting in bed ,denies needs, will continue to montior.
[2018-08-05 07:18] LABS: BASO % 0.1 % (0.0-2.0); GRAN # 4.4 (1.4-6.5); HEMOGLOBIN 11.5 g/dl (12.5-16.0); LYMPH # 2.5 (1.2-3.4); LYMPH % 33.9 % (20.0-51.0); MEAN CELL VOLUME 95 fl (80.0-100.0); MEAN CORPUSCULAR HEMOGLOBIN 31 pg (27.0-31.0); MEAN CORPUSCULAR HGB CONC 33 g/dl (33.0-37.0); MEAN PLATELET VOLUME 8.2 fl (7.4-10.4); MONO # 0.3 (0.1-0.6); MONO % 4.4 % (1.7-9.3); PLATELET COUNT 310 K/mm3 (130-400); RED BLOOD COUNT 3.66 M/mm3 (4.10-5.30); REDCELL DISTRIBUTION WIDTH-CV 13.2 % (11.5-14.5)
[2018-08-05 07:24] LABS: HEMATOCRIT 34.6 % (37.0-47.0)
[2018-08-05 07:27] LABS: CALCIUM 7.7 mg/dL (8.4-10.2); CREATININE, serum 0.8 (0.52-1.25); POTASSIUM 3.9 mmol/L (3.4-5.0)
--- NOTE | 2018-08-05 09:50 | NUR ---
Assessment charted. Pt tearful with SHAYLEE Duncan and myself, feels stressed and frustrated with current situation but denies suicidal ideations. Resting in bed. Sores all over, worst sores are in L foot. Will do bed bath and apply cream/powder. IVF to [facility]. WIll continue to monitor
--- NOTE | 2018-08-05 18:20 | NUR ---
Pt has done well this shift. Refuses to be turned due to low back pain, discussed using an air mattress but pt refused. CHanged for incontinence and applied desenex to groin areas. Denies needs, taking PO well, will give bedside shift report to nightshift nurse who will resume care.
--- NOTE | 2018-08-05 20:34 | NUR ---
Shift assessment complete. Pt resting in bed, awake, a&o, cooperative c cares. Pt denies pain at this time. Blisters noted to entire body, some open areas, some scabbed areas. Pt denies c/o. INT patent. Call light in reach. Will continue to monitor.
--- NOTE | 2018-08-06 01:09 | NUR ---
Report received from BONNIE Venegas. Patient resting well in bed with eyes closed. Woke up when this nurse called her name. Introduced myself and hung an antibiotic. Patient requested fresh ice water. States she does not need to go to the restroom. Denies any further needs. Will continue to monitor throughout the night.
[2018-08-06 02:39] VITALS: BP 127/79; PULSE 101; TEMP 97.8
--- NOTE | 2018-08-06 03:17 | NUR ---
Patient resting well in bed. Denies any needs. Will continue to monitor.
--- NOTE | 2018-08-06 06:58 | NUR ---
Report given to BONNIE Childress.
[2018-08-06 07:47] VITALS: BP 132/73; PULSE 102; TEMP 98.4
--- NOTE | 2018-08-06 09:45 | NUR ---
Assessment complete. Patient A&Ox3. Denies pain and reporting itching all over body related to blisters. VS stable. IV CDI. Nurse encouraged patient to get into shower today, patient said she will notify nursing staff when she is ready. Patient has a noticable odor from sores on body. Patient says she has concerns about what she can use on her body. Nurse will notify doctors of concerns. No further needs expressed from patient. Call light within reach
[2018-08-06 11:35] VITALS: BP 133/79; PULSE 99; TEMP 98.7
--- NOTE | 2018-08-06 12:38 | NUR ---
Initial visit; Patient thanked Fourchette Sewer for looking in on her and offering God's blessings. Patient stated her [employer] is aware of her hospitalization.
--- NOTE | 2018-08-06 13:40 | NUR ---
M[facility]A contacted [facility] about referral. Tavon reports they need to verify patient's insurance before they can accept her. MARTA contacted [facility] about referral. They report that they do not have any beds available and do not know when one will be available.
[2018-08-06 17:20] VITALS: BP 129/63; PULSE 95; TEMP 98.8
--- NOTE | 2018-08-06 18:10 | NUR ---
Patient sitting up in bed finishing up dinner. A&O, denies pain and discomfort. VS stable. IV site not in use, but AIVS unable to start new site. Will keep IV site, patient anticipated discharge tomorrow. No further needs expressed from patient. Call light within reach
--- NOTE | 2018-08-06 19:50 | NUR ---
Shift assessment complete. Pt resting in bed, awake, a&o, cooperative c cares. Pt cont c/o itching, will provided c atarax at HS per request. Pt 2x assist to BR at this time, slow steady gait c walker. INT patent. Pt denies further needs at this time. Call light in reach, will monitor.
[2018-08-06 20:26] VITALS: BP 138/87; PULSE 103; TEMP 98.1
[2018-08-07 00:28] VITALS: BP 131/78; PULSE 97; TEMP 98.2
[2018-08-07 03:48] VITALS: BP 142/72; PULSE 99; TEMP 97.8
[2018-08-07 07:11] VITALS: BP 132/74; PULSE 100; TEMP 98.2
--- NOTE | 2018-08-07 07:39 | NUR ---
Received report, patient is resting in bed with HOB elevated. Personal items and call light is within reach.
--- NOTE | 2018-08-07 10:50 | NUR ---
MARTA met with patient while Tavon from [facility] spoke with her. Patient was very tearful because she feels she can't take care of herself anymore. Tavon reported he will let SW know if patient is accepted.
[2018-08-07 11:10] VITALS: BP 129/66; PULSE 95; TEMP 98.2
--- NOTE | 2018-08-07 11:49 | NUR ---
Patient was accepted to [facility] for residential, PT, and OT. SW met with patient to inform her of acceptance and time (1:30pm) of discharge. MARTA also presented IM to patient. She signed but did not want a copy. MARTA will fax discharge orders.
[2018-08-07] MEDS ORDERED: Monodox PO (12:40)
[2018-08-07] MEDS ORDERED: DIFLUCAN150 MG PO (12:41)
[2018-08-07] MEDS ORDERED: PREDNISONE10 MG PO (12:42)
[2018-08-07] MEDS ORDERED: DESENEX21 TP (12:43)
[2018-08-07] MEDS ORDERED: TEMOVATE OINT30 GM TP (12:45)
--- NOTE | 2018-08-07 14:43 | NUR ---
Patient discharged to [facility] shelter unit at 1336. [facility] staff to package pick up in their facility vehicle. Personal belongings sent with patient.
== END 2018-08-07 13:36 | DRG 596 ==
LOC: COL.ER 16:53 → MEDICAL 19:39
PROVIDERS: Emergency Medicine; Hospitalist; Nurse Practitioner Family; ADMIT Family Medicine
DX: L12.0 Bullous pemphigoid (principal); E87.2 Acidosis; E44.0 Moderate protein-calorie malnutrition; I11.0 Hypertensive heart disease with heart failure; I50.9 Heart failure, unspecified; E66.01 Morbid (severe) obesity due to excess calories; G47.33 Obstructive sleep apnea (adult) (pediatric); F32.9 Major depressive disorder, single episode, unspecified; R53.81 Other malaise; K13.70 Unspecified lesions of oral mucosa; B37.9 Candidiasis, unspecified; R62.7 Adult failure to thrive; E86.0 Dehydration; Z68.37 Body mass index [BMI] 37.0-37.9, adult; Z79.82 Long term (current) use of aspirin
CPT/HCPCS: OP; 99222-AI; 99232-AI; 99239; G0378; J1450; J1650; J7030; J7050; J7512

== ENCOUNTER → 2018-10-31 | Outpatient (CLI) | payer MEDICARE ==
[~2018-10-31] MED LIST changes: +ATARAX 25MG25 MG/TAB PO; +CELEXA 20MG20 MG/TAB; +Monodox PO; +TEMOVATE OINT30 GM TP
[2018-10-31 11:31] LABS: COLLECTION METHOD CATHETER
[2018-10-31 11:43] LABS: ALBUMIN 2.7 gm/dL (3.5-5.0); BILIRUBIN,TOTAL 0.2 mg/dL (0.0-1.0); CALCIUM 8.4 mg/dL (8.4-10.2); CHOLESTEROL RISK RATIO 3.2; CREATININE, serum 0.54 (0.52-1.25); POTASSIUM 3.6 mmol/L (3.4-5.0); TOTAL PROTEIN 4.7 gm/dL (6.4-8.2)
[2018-10-31 12:13] LABS: TSH w REFLEX 2.58 uIU/mL (0.465-4.680)
[2018-10-31 12:14] LABS: PH 5 (5-8); URINE APPEARANCE Clear; URINE BACTERIA Rare /hpf; URINE BILIRUBIN Negative (NEGATIVE); URINE BLOOD Negative (NEGATIVE); URINE COLOR Yellow; URINE GLUCOSE Negative (NEGATIVE); URINE KETONE Negative (NEGATIVE); URINE LEUKOCYTE ESTERASE Negative (NEGATIVE); URINE NITRATE Negative (NEGATIVE); URINE PROTEIN(semi-quant) Negative (NEGATIVE); URINE RBC 0-2 /hpf; URINE UROBILINOGEN Negative (NEGATIVE)
[2018-10-31 12:18] LABS: BASO % 0.6 % (0.0-2.0); EOS # 0.2 (0.0-0.7); EOS % 3.5 % (0-4.0); GRAN % 45.6 % (42.2-75.2); HEMOGLOBIN 11.8 g/dl (12.5-16.0); LYMPH # 2.9 (1.2-3.4); LYMPH % 42.9 % (20.0-51.0); MEAN CELL VOLUME 98 fl (80.0-100.0); MEAN CORPUSCULAR HEMOGLOBIN 32 pg (27.0-31.0); MEAN CORPUSCULAR HGB CONC 32 g/dl (33.0-37.0); MEAN PLATELET VOLUME 9.7 fl (7.4-10.4); MONO # 0.5 (0.1-0.6); MONO % 6.8 % (1.7-9.3); PLATELET COUNT 222 K/mm3 (130-400); RED BLOOD COUNT 3.75 M/mm3 (4.10-5.30)
[2018-10-31 12:27] LABS: HEMATOCRIT 36.7 % (37.0-47.0)
== END ==
LOC: ZLAB.STJ 10:45
PROVIDERS: Family Medicine
DX: R79.89 Other specified abnormal findings of blood chemistry (principal); R68.89 Other general symptoms and signs

== ENCOUNTER → 2018-12-20 | Outpatient (CLI) | payer MEDICARE, MEDICAID | LOC: MC.RAD 13:17 | DX: Z12.31 Encounter for screening mammogram for malignant neoplasm of breast (principal) ==

== ENCOUNTER → 2019-08-20 | Outpatient (CLI) | payer MEDICARE, MEDICAID | LOC: ZLAB.STJ 16:01 | DX: Z01.84 Encounter for antibody response examination (principal); Z20.828 Contact with and (suspected) exposure to other viral communicable diseases ==

== ENCOUNTER 2019-08-31 11:53 | Emergency (ER) | payer MEDICARE, MEDICAID ==
[~2019-08-31] VITALS: Ht 157.5 cm; Wt 140.9 kg
[2019-08-31 11:57] VITALS: TEMP 97.8
[2019-08-31] MEDS ORDERED: ASPIRIN 81M81 MG/TA2 PO (12:17)
[2019-08-31] MEDS ORDERED: VITAMIN D31000 IU PO (12:20)
[2019-08-31 12:39] LABS: BASO % 0.3 % (0.0-2.0); EOS % 0.3 % (0-4.0); GRAN # 10.2 (1.4-6.5); GRAN % 89.1 % (42.2-75.2); HEMATOCRIT 44.8 % (37.0-47.0); HEMOGLOBIN 14.3 g/dl (12.5-16.0); LYMPH # 0.8 (1.2-3.4); LYMPH % 7.3 % (20.0-51.0); MEAN CELL VOLUME 92 fl (80.0-100.0); MEAN CORPUSCULAR HEMOGLOBIN 30 pg (27.0-31.0); MEAN CORPUSCULAR HGB CONC 32 g/dl (33.0-37.0); MEAN PLATELET VOLUME 9.2 fl (7.4-10.4); MONO # 0.3 (0.1-0.6); MONO % 2.5 % (1.7-9.3); PLATELET COUNT 208 K/mm3 (130-400); RED BLOOD COUNT 4.85 M/mm3 (4.10-5.30); REDCELL DISTRIBUTION WIDTH-CV 12.6 % (11.5-14.5)
[2019-08-31 12:47] LABS: ALANINE AMINOTRANSFERASE 19 U/L (4-34); ALBUMIN 3.7 gm/dL (3.5-5.0); ALKALINE PHOSPHATASE 81 U/L (50-136); ANION GAP 6 mmol/L (7-16); AST,SGOT 26 U/L (15-37); BILIRUBIN,TOTAL 0.8 mg/dL (0.0-1.0); BLOOD UREA NITROGEN 15 mg/dL (7-17); CALCIUM 9.1 mg/dL (8.4-10.2); CARBON DIOXIDE 34 mmol/L (22-30); CHLORIDE 97 mmol/L (98-107); CREATININE, serum 0.87 (0.52-1.25); GLUCOSE 129 mg/dL (74-106); LIPASE 75 U/L (23-300); MAGNESIUM 1.9 mg/dL (1.6-2.3); SODIUM 137 mmol/L (137-145); TOTAL PROTEIN 7.1 gm/dL (6.4-8.2)
[2019-08-31 12:48] LABS: PROTHROMBIN TIME 11.7 SECONDS (9.7-12.8)
[2019-08-31 12:49] LABS: PARTIAL THROMBOPLASTIN TIME 30.3 SECONDS (26.0-37.0)
[2019-08-31 13:01] LABS: TROPONIN-I < 0.012 ng/mL (0.000-0.035)
[2019-08-31 14:11] LABS: COLLECTION METHOD CLEAN CATCH
[2019-08-31 14:17] LABS: MUCOUS Present /lpf; PH 7 (5-8); URINE APPEARANCE Hazy; URINE BACTERIA None Seen /hpf; URINE BILIRUBIN Negative (NEGATIVE); URINE BLOOD 1+ (NEGATIVE); URINE COLOR Yellow; URINE GLUCOSE Negative (NEGATIVE); URINE KETONE Negative (NEGATIVE); URINE LEUKOCYTE ESTERASE Negative (NEGATIVE); URINE NITRATE Negative (NEGATIVE); URINE PROTEIN(semi-quant) Negative (NEGATIVE); URINE UROBILINOGEN Negative (NEGATIVE)
[2019-08-31] MEDS ORDERED: DOXYCYCLINE 10100 MG PO (14:51)
[2019-08-31 17:30] VITALS: BP 124/70; PULSE 75
== END 2019-08-31 18:00 | disposition home or self-care (01) ==
LOC: COL.ER 11:53
PROVIDERS: Emergency Medicine
DX: R07.89 Other chest pain (principal); J18.9 Pneumonia, unspecified organism; E66.01 Morbid (severe) obesity due to excess calories; Z79.52 Long term (current) use of systemic steroids; Z79.82 Long term (current) use of aspirin
CPT/HCPCS: J7030; Q9967

== ENCOUNTER → 2019-12-11 | Outpatient (CLI) | payer MEDICARE, MEDICAID ==
[~2019-12-11] MED LIST changes: +VITAMIN D31000 IU PO
[2019-12-11 14:23] LABS: COLLECTION METHOD CLEAN CATCH
[2019-12-11 14:32] LABS: PH 6 (5-8); URINE APPEARANCE Hazy; URINE BACTERIA None Seen /hpf; URINE BILIRUBIN Negative (NEGATIVE); URINE BLOOD Negative (NEGATIVE); URINE COLOR Yellow; URINE GLUCOSE Negative (NEGATIVE); URINE KETONE Negative (NEGATIVE); URINE LEUKOCYTE ESTERASE 2+ (NEGATIVE); URINE NITRATE Negative (NEGATIVE); URINE PROTEIN(semi-quant) Negative (NEGATIVE); URINE UROBILINOGEN Negative (NEGATIVE)
== END ==
LOC: ZLAB.STJ 13:18
PROVIDERS: Family Medicine
DX: E11.29 Type 2 diabetes mellitus with other diabetic kidney complication (principal)

== ENCOUNTER 2019-12-22 05:47 | Emergency (ER) | payer MEDICARE, MEDICAID ==
[~2019-12-22] VITALS: Ht 157.5 cm; Wt 163.6 kg
[2019-12-22 05:51] VITALS: TEMP 98.3
[2019-12-22 06:38] LABS: BASO % 0.3 % (0.0-2.0); EOS # 0.1 (0.0-0.7); EOS % 1.1 % (0-4.0); GRAN # 9.5 (1.4-6.5); GRAN % 80.5 % (42.2-75.2); HEMATOCRIT 44.7 % (37.0-47.0); HEMOGLOBIN 14.1 g/dl (12.5-16.0); LYMPH # 1.6 (1.2-3.4); LYMPH % 13.4 % (20.0-51.0); MEAN CELL VOLUME 91 fl (80.0-100.0); MEAN CORPUSCULAR HEMOGLOBIN 29 pg (27.0-31.0); MEAN CORPUSCULAR HGB CONC 32 g/dl (33.0-37.0); MONO # 0.5 (0.1-0.6); MONO % 4.3 % (1.7-9.3); PLATELET COUNT 202 K/mm3 (130-400); RED BLOOD COUNT 4.89 M/mm3 (4.10-5.30)
[2019-12-22 07:04] LABS: ALANINE AMINOTRANSFERASE 21 U/L (4-34); ALBUMIN 3.7 gm/dL (3.5-5.0); ALKALINE PHOSPHATASE 78 U/L (50-136); ANION GAP 6 mmol/L (7-16); AST,SGOT 39 U/L (15-37); BILIRUBIN,TOTAL 0.7 mg/dL (0.0-1.0); BLOOD UREA NITROGEN 17 mg/dL (7-17); CALCIUM 8.7 mg/dL (8.4-10.2); CARBON DIOXIDE 32 mmol/L (22-30); CHLORIDE 100 mmol/L (98-107); CREATININE, serum 0.76 (0.52-1.25); GLUCOSE 99 mg/dL (74-106); LIPASE 80 U/L (23-300); MAGNESIUM 1.8 mg/dL (1.6-2.3); POTASSIUM 3.9 mmol/L (3.4-5.0); SODIUM 137 mmol/L (137-145); TOTAL PROTEIN 6.9 gm/dL (6.4-8.2)
[2019-12-22 07:18] LABS: TROPONIN-I < 0.012 ng/mL (0.000-0.035)
[2019-12-22 11:40] VITALS: BP 135/92; PULSE 86
== END 2019-12-22 11:40 | disposition home or self-care (01) ==
LOC: COL.ER 05:47
PROVIDERS: Emergency Medicine
DX: R07.89 Other chest pain (principal); I10 Essential (primary) hypertension; Z79.82 Long term (current) use of aspirin

== ENCOUNTER 2020-01-12 14:30 | Emergency (ER) | payer MEDICARE, MEDICAID ==
[~2020-01-12] VITALS: Ht 152.4 cm; Wt 136.4 kg
[2020-01-12 14:33] VITALS: TEMP 98.9
[2020-01-12 15:39] LABS: ALANINE AMINOTRANSFERASE 21 U/L (4-34); ALBUMIN 3.8 gm/dL (3.5-5.0); ALKALINE PHOSPHATASE 80 U/L (50-136); ANION GAP 6 mmol/L (7-16); AST,SGOT 32 U/L (15-37); BILIRUBIN,TOTAL 0.4 mg/dL (0.0-1.0); BLOOD UREA NITROGEN 19 mg/dL (7-17); CALCIUM 8.7 mg/dL (8.4-10.2); CARBON DIOXIDE 35 mmol/L (22-30); CHLORIDE 99 mmol/L (98-107); CREATININE, serum 0.97 (0.52-1.25); GLUCOSE 187 mg/dL (74-106); LIPASE 409 U/L (23-300); SODIUM 141 mmol/L (137-145); TOTAL PROTEIN 7.1 gm/dL (6.4-8.2)
[2020-01-12 15:47] LABS: PROTHROMBIN TIME 10.8 SECONDS (9.7-12.8)
[2020-01-12 15:50] LABS: TROPONIN-I < 0.012 ng/mL (0.000-0.035)
[2020-01-12 16:07] LABS: BASO % 0.1 % (0.0-2.0); EOS % 0.2 % (0-4.0); GRAN # 7.6 (1.4-6.5); GRAN % 85.8 % (42.2-75.2); HEMATOCRIT 46.1 % (37.0-47.0); HEMOGLOBIN 14.2 g/dl (12.5-16.0); LYMPH # 0.9 (1.2-3.4); LYMPH % 10.2 % (20.0-51.0); MEAN CELL VOLUME 94 fl (80.0-100.0); MEAN CORPUSCULAR HEMOGLOBIN 29 pg (27.0-31.0); MEAN CORPUSCULAR HGB CONC 31 g/dl (33.0-37.0); MEAN PLATELET VOLUME 9.8 fl (7.4-10.4); MONO # 0.3 (0.1-0.6); MONO % 3.4 % (1.7-9.3); PLATELET COUNT 247 K/mm3 (130-400); RED BLOOD COUNT 4.92 M/mm3 (4.10-5.30); REDCELL DISTRIBUTION WIDTH-CV 13.1 % (11.5-14.5)
[2020-01-12 19:06] VITALS: BP 137/65; PULSE 76
== END 2020-01-12 19:06 | disposition short-term general hospital (02) ==
LOC: COL.ER 14:30
PROVIDERS: Emergency Medicine
DX: I61.6 Nontraumatic intracerebral hemorrhage, multiple localized (principal); I10 Essential (primary) hypertension; I50.9 Heart failure, unspecified; E66.01 Morbid (severe) obesity due to excess calories; Z79.52 Long term (current) use of systemic steroids; Z79.82 Long term (current) use of aspirin; Z68.43 Body mass index [BMI] 50.0-59.9, adult
CPT/HCPCS: J1953; J7050; Q9967

== ENCOUNTER → 2020-02-10 | Outpatient (CLI) | payer MEDICARE, MEDICAID | LOC: COL.RAD 08:24 | DX: I61.9 Nontraumatic intracerebral hemorrhage, unspecified (principal) ==

== ENCOUNTER → 2020-02-14 | Outpatient (REF) ==
[2020-02-14 14:09] LABS: CREATININE, serum 0.92 (0.52-1.25)
== END ==
LOC: ZLAB.STJ 14:01
PROVIDERS: Family Medicine
DX: I61.9 Nontraumatic intracerebral hemorrhage, unspecified (principal)

== ENCOUNTER 2020-03-29 18:13 | Emergency (ER) | payer MEDICARE, MEDICAID, BC, OTHER ==
[~2020-03-29] VITALS: Ht 157.5 cm; Wt 168.6 kg
[2020-03-29 18:15] VITALS: BP 139/67; TEMP 98.1
[2020-03-29 19:11] LABS: BASO % 0.1 % (0.0-2.0); EOS % 0.1 % (0-4.0); GRAN # 6.4 (1.4-6.5); GRAN % 88.1 % (42.2-75.2); HEMATOCRIT 42.4 % (37.0-47.0); HEMOGLOBIN 13.1 g/dl (12.5-16.0); LYMPH # 0.7 (1.2-3.4); LYMPH % 9.3 % (20.0-51.0); MEAN CELL VOLUME 93 fl (80.0-100.0); MEAN CORPUSCULAR HEMOGLOBIN 29 pg (27.0-31.0); MEAN CORPUSCULAR HGB CONC 31 g/dl (33.0-37.0); MEAN PLATELET VOLUME 9.4 fl (7.4-10.4); MONO # 0.1 (0.1-0.6); MONO % 1.9 % (1.7-9.3); PLATELET COUNT 171 K/mm3 (130-400); RED BLOOD COUNT 4.57 M/mm3 (4.10-5.30); REDCELL DISTRIBUTION WIDTH-CV 12.5 % (11.5-14.5)
[2020-03-29] MEDS ORDERED: BACTRIM DS 8001 TAB PO (20:30)
== END 2020-03-29 22:57 | disposition home or self-care (01) ==
LOC: COL.ER 18:13
PROVIDERS: Family Medicine
DX: L03.116 Cellulitis of left lower limb (principal); F32.9 Major depressive disorder, single episode, unspecified; I50.9 Heart failure, unspecified; I11.0 Hypertensive heart disease with heart failure; Z98.61 Coronary angioplasty status; Z86.16 Personal history of COVID-19; Z79.82 Long term (current) use of aspirin
CPT/HCPCS: J0696

== ENCOUNTER 2020-04-10 22:56 | Emergency (ER) | payer MEDICARE, MEDICAID ==
[~2020-04-10] VITALS: Ht 157.5 cm; Wt 174.5 kg
[~2020-04-10 22:56] MED LIST changes: +BACTRIM DS 8001 TAB PO
[2020-04-10 22:58] VITALS: BP 135/67; TEMP 97.7
[2020-04-11 02:05] VITALS: PULSE 66
== END 2020-04-11 02:05 | disposition home or self-care (01) ==
LOC: COL.ER 22:56
DX: S92.412A Displaced fracture of proximal phalanx of left great toe, initial encounter for closed fracture (principal); I10 Essential (primary) hypertension; E66.01 Morbid (severe) obesity due to excess calories; F32.9 Major depressive disorder, single episode, unspecified; Z79.52 Long term (current) use of systemic steroids; Z79.82 Long term (current) use of aspirin; W18.12XA Fall from or off toilet with subsequent striking against object, initial encounter; Y92.002 Bathroom of unspecified non-institutional (private) residence as the place of occurrence of the external cause

== ENCOUNTER → 2020-05-14 | Outpatient (CLI) | payer MEDICARE, MEDICAID ==
[~2020-05-14] MED LIST changes: +AL-MAG HYDROX-S30 ML PO; +CELEXA 20MG20 MG/TAB PO; +CLARITIN 1010 MG/TAB PO; +CLEOCIN HCL300 MG PO; +COREG 6.256.25 MG/TA PO; +KEPPRA 500MG500 MG PO; +LASIX 40MG TABL40 MG PO; +LIPITOR20 MG PO; +MIRALAX PA17 GM/Dose PO; +MUCINEX 60600 MG/TA1 PO; +NITROSTAT0.4 MG/TAB SL; +NORCO 325 MG-51 TAB PO; +NYAMYC100000 U/G TP; +ONE-A-DAY ESSE1 EACH PO; +PRILOSEC 20MG20 MG PO; +SPRITAM500 MG PO; +TEMOVATE0.05% TP; +TRIAMCINOLONE A15 G3 TP; +TYLENOL 500MG500 MG PO; +VITAMIN D31000 I1 PO; +ZINC OXIDE 28GM TP
[2020-05-14 17:23] LABS: CALCIUM 8.5 mg/dL (8.4-10.2); CREATININE, serum 0.79 (0.52-1.25)
== END ==
LOC: ZLAB.STJ 16:58
PROVIDERS: Family Medicine
DX: I10 Essential (primary) hypertension (principal); R60.0 Localized edema

== ENCOUNTER → 2020-05-19 | Outpatient (CLI) | payer MEDICARE, MEDICAID | LOC: ZLAB.STJ 20:01 | DX: I10 Essential (primary) hypertension (principal) ==

== ENCOUNTER → 2020-06-04 | Outpatient (CLI) | payer MEDICARE, MEDICAID ==
[2020-06-04 11:09] LABS: CHOLESTEROL RISK RATIO 2.9
[2020-06-04 11:39] LABS: THYROID STIMULATING HORMONE 2.3 uIU/mL (0.465-4.680)
== END ==
LOC: ZLAB.STJ 10:51
PROVIDERS: Family Medicine
DX: E78.5 Hyperlipidemia, unspecified (principal); E55.9 Vitamin D deficiency, unspecified; E66.01 Morbid (severe) obesity due to excess calories

== ENCOUNTER → 2020-06-15 | Outpatient (CLI) | payer MEDICARE, MEDICAID ==
[2020-06-15 18:59] LABS: CALCIUM 8.7 mg/dL (8.4-10.2); CREATININE, serum 0.88 (0.52-1.25); POTASSIUM 3.9 mmol/L (3.4-5.0)
== END ==
LOC: ZCOL.LAB 18:23
PROVIDERS: Family Medicine
DX: L12.0 Bullous pemphigoid (principal); I10 Essential (primary) hypertension

== ENCOUNTER 2020-06-16 18:21 | Observation (INO) | payer MEDICARE, MEDICAID ==
[~2020-06-16] VITALS: Ht 157.6 cm; Wt 178.6 kg
[~2020-06-16 18:21] MED LIST changes: -AL-MAG HYDROX-S30 ML PO; -CELEXA 20MG20 MG/TAB PO; -CLARITIN 1010 MG/TAB PO; -CLEOCIN HCL300 MG PO; -COREG 6.256.25 MG/TA PO; -KEPPRA 500MG500 MG PO; -LASIX 40MG TABL40 MG PO; -LIPITOR20 MG PO; -MIRALAX PA17 GM/Dose PO; -MUCINEX 60600 MG/TA1 PO; -NITROSTAT0.4 MG/TAB SL; -NORCO 325 MG-51 TAB PO; -NYAMYC100000 U/G TP; -ONE-A-DAY ESSE1 EACH PO; -PRILOSEC 20MG20 MG PO; -SPRITAM500 MG PO; -TEMOVATE0.05% TP; -TRIAMCINOLONE A15 G3 TP; -TYLENOL 500MG500 MG PO; -VITAMIN D31000 I1 PO; -ZINC OXIDE 28GM TP
[2020-06-16 19:39] LABS: BASO % 0.2 % (0.0-2.0); EOS % 0.5 % (0-4.0); GRAN # 6.6 (1.4-6.5); GRAN % 77.8 % (42.2-75.2); HEMATOCRIT 44.6 % (37.0-47.0); HEMOGLOBIN 14.1 g/dl (12.5-16.0); LYMPH # 1.3 (1.2-3.4); LYMPH % 15.8 % (20.0-51.0); MEAN CELL VOLUME 94 fl (80.0-100.0); MEAN CORPUSCULAR HEMOGLOBIN 30 pg (27.0-31.0); MEAN CORPUSCULAR HGB CONC 32 g/dl (33.0-37.0); MEAN PLATELET VOLUME 9.2 fl (7.4-10.4); MONO # 0.5 (0.1-0.6); MONO % 5.5 % (1.7-9.3); PLATELET COUNT 185 K/mm3 (130-400); RED BLOOD COUNT 4.77 M/mm3 (4.10-5.30); REDCELL DISTRIBUTION WIDTH-CV 12.9 % (11.5-14.5)
[2020-06-16 19:53] LABS: ALANINE AMINOTRANSFERASE 14 U/L (4-34); ALBUMIN 3.6 gm/dL (3.5-5.0); ALKALINE PHOSPHATASE 69 U/L (50-136); AST,SGOT 23 U/L (15-37); BILIRUBIN,TOTAL 0.4 mg/dL (0.0-1.0); BLOOD UREA NITROGEN 15 mg/dL (7-17); C-REACTIVE PROTEIN 1.1 mg/dL (0.0-0.9); CALCIUM 8.7 mg/dL (8.4-10.2); CHLORIDE 94 mmol/L (98-107); CREATININE, serum 0.78 (0.52-1.25); GLUCOSE 117 mg/dL (74-106); LIPASE 85 U/L (23-300); SODIUM 139 mmol/L (137-145); TOTAL PROTEIN 7.1 gm/dL (6.4-8.2)
[2020-06-16 20:05] LABS: MUCOUS Present /lpf; PH 8 (5-8); URINE APPEARANCE Cloudy; URINE BACTERIA Rare /hpf; URINE BILIRUBIN Negative (NEGATIVE); URINE BLOOD Negative (NEGATIVE); URINE COLOR Yellow; URINE GLUCOSE Negative (NEGATIVE); URINE KETONE Negative (NEGATIVE); URINE LEUKOCYTE ESTERASE 3+ (NEGATIVE); URINE NITRATE Negative (NEGATIVE); URINE PROTEIN(semi-quant) Negative (NEGATIVE)
[2020-06-16 20:09] LABS: CARBON DIOXIDE 41 mmol/L (22-30); TROPONIN-I < 0.012 ng/mL (0.000-0.035)
[2020-06-16 20:23] LABS: PROTHROMBIN TIME 11.4 SECONDS (9.7-12.8)
[2020-06-16 20:27] LABS: ANION GAP 18 mmol/L (7-16)
[2020-06-16] MEDS ORDERED: ZINC OXIDE 28GM TP (21:10)
[2020-06-16] MEDS ORDERED: TRIAMCINOLONE A15 G3 TP (21:13)
[2020-06-16] MEDS ORDERED: NYAMYC100000 U/G TP (21:14)
[2020-06-16] MEDS ORDERED: MUCINEX 60600 MG/TA1 PO (21:14)
[2020-06-16] MEDS ORDERED: MIRALAX PA17 GM/Dose PO (21:15)
[2020-06-16] MEDS ORDERED: ONE-A-DAY ESSE1 EACH PO (21:15)
[2020-06-16] MEDS ORDERED: ATARAX 25MG25 MG/TAB PO (21:17)
[2020-06-16] MEDS ORDERED: CELEXA 20MG20 MG/TAB PO (21:19)
[2020-06-16] MEDS ORDERED: NORVASC 10MG10 MG PO (21:20)
[2020-06-16] MEDS ORDERED: LIPITOR20 MG PO (21:20)
[2020-06-16] MEDS ORDERED: COREG 6.256.25 MG/TA PO (21:20)
[2020-06-16] MEDS ORDERED: VITAMIN D31000 I1 PO (21:21)
[2020-06-16] MEDS ORDERED: SPRITAM500 MG PO (21:22)
[2020-06-16] MEDS ORDERED: CLARITIN 1010 MG/TAB PO (21:22)
[2020-06-16] MEDS ORDERED: TYLENOL 500MG500 MG PO (21:23)
[2020-06-16] MEDS ORDERED: TEMOVATE0.05% TP (21:24)
[2020-06-16] MEDS ORDERED: NORCO 325 MG-51 TAB PO (21:24)
[2020-06-16] MEDS ORDERED: LASIX 40MG TABL40 MG PO (21:25)
[2020-06-16] MEDS ORDERED: PREDNISONE10 MG PO (21:25)
[2020-06-16] MEDS ORDERED: CLEOCIN HCL300 MG PO (21:26)
[2020-06-17] VITALS (11 sets, daily range): BP systolic 114–155; BP diastolic 48–72; PULSE 65–80; TEMP 97.7–98.2
--- NOTE | 2020-06-17 04:40 | NUR ---
Pt. resting in bed at this time. Pt. is A&OX3, assessment complete. INt to lt. upper arm patent. Pt. denies pain or other need.
[2020-06-17 06:36] LABS: BASO % 0.3 % (0.0-2.0); EOS # 0.2 (0.0-0.7); EOS % 3.1 % (0-4.0); GRAN # 3.7 (1.4-6.5); GRAN % 60.1 % (42.2-75.2); HEMATOCRIT 43.5 % (37.0-47.0); HEMOGLOBIN 13.5 g/dl (12.5-16.0); LYMPH # 1.8 (1.2-3.4); LYMPH % 28.7 % (20.0-51.0); MEAN CELL VOLUME 94 fl (80.0-100.0); MEAN CORPUSCULAR HEMOGLOBIN 29 pg (27.0-31.0); MEAN CORPUSCULAR HGB CONC 31 g/dl (33.0-37.0); MEAN PLATELET VOLUME 9.1 fl (7.4-10.4); MONO # 0.5 (0.1-0.6); MONO % 7.5 % (1.7-9.3); PLATELET COUNT 183 K/mm3 (130-400); RED BLOOD COUNT 4.64 M/mm3 (4.10-5.30); REDCELL DISTRIBUTION WIDTH-CV 12.8 % (11.5-14.5)
--- NOTE | 2020-06-17 06:43 | NUR ---
Lying in bed with eyes closed. Opens eyes when name called out. Alert and oriented x4. Denies pain. Bruising noted to both arms, patient says from the staff trying to start IV's. Weepy vesicle to right upper thigh. Patient does have 3+ edema to bilat lower extremities, says this is normal for her. Patient says that she is tired this morning. Denies additional needs.
[2020-06-17] MEDS ORDERED: KEPPRA 500MG500 MG PO (06:46)
[2020-06-17] MEDS ORDERED: MIRALAX PA17 GM/Dose PO (06:48)
[2020-06-17] MEDS ORDERED: TRIAMCINOLONE A15 G3 TP (06:51)
[2020-06-17 06:58] LABS: BLOOD UREA NITROGEN 14 mg/dL (7-17); CALCIUM 8.5 mg/dL (8.4-10.2); CHLORIDE 97 mmol/L (98-107); CHOLESTEROL 134 mg/dL (120-200); CREATININE, serum 0.64 (0.52-1.25); GLUCOSE 93 mg/dL (74-106); HDL CHOLESTEROL 44 mg/dL; LDL CHOLESTEROL 64 mg/dL; LIPASE 67 U/L (23-300); POTASSIUM 3.2 mmol/L (3.4-5.0); SODIUM 139 mmol/L (137-145); TRIGLYCERIDE 131 mg/dL
[2020-06-17 07:05] LABS: TROPONIN-I < 0.012 ng/mL (0.000-0.035)
[2020-06-17 07:06] LABS: CARBON DIOXIDE 39 mmol/L (22-30)
[2020-06-17 07:08] LABS: ANION GAP 3 mmol/L (7-16)
--- NOTE | 2020-06-17 08:45 | NUR ---
Patient to stress test via wheelchair at this time.
--- NOTE | 2020-06-17 10:09 | NUR ---
Patient back to room via wheelchair from stress test. Transfers self from wheelchair to bed with use of walker and assist of one.
--- NOTE | 2020-06-17 10:47 | NUR ---
SW attended clinical rounds. The patient may be able to d/c later today. SW followed up with the patient to discuss discharge plan. The patient resides at [facility] for long-term care. Her PCP is Dr. Radha Lagos. The patient does not have a DPOA-HC in EMR, but she states that she does have one completed and that her daughter should have a copy of it. She states that her daughter, Lisbet Thomas (ph#[phone]), is her DPOA-HC. Lisbet lives in [place]. The patient states that she is not and has one child: Lisbet. The patient plans to return back to [facility] upon discharge. MARTA contacted and reviewed the above with Lisbet. Lisbet confirms plan to return back to [facility] and that she is the patient's DPOA-HC. Lisbet states that she can email the document to this SW. SW provided her with this SW's email address.
[2020-06-17] MEDS ORDERED: NITROSTAT0.4 MG/TAB SL ×2 (11:12)
[2020-06-17] MEDS ORDERED: PRILOSEC 20MG20 MG PO (11:13)
[2020-06-17] MEDS ORDERED: AL-MAG HYDROX-S30 ML PO (11:13)
[2020-06-17] MEDS ORDERED: ASPIRIN E.C. 8181 MG PO (11:14)
--- NOTE | 2020-06-17 11:16 | NUR ---
Lying in bed with eyes open. Discuss with the patient how to order food from the kitchen, patient refuses at this time. Provided water. Explain that we will contact [facility] and keep her updated as soon as we know a time they will come to pick her up. Patient would like [facility] to bring her wlker when they come to pick her up.
--- NOTE | 2020-06-17 11:27 | NUR ---
The patient is to discharge today, 06/17, back to [facility] for long-term care. Transportation was scheduled around [id number], via [facility]. MARTA informed the patient, her RN, and the patient's daughter (Lisbet) over the phone. They were all agreeable to the time. No additional needs at this time.
[2020-06-17 11:30] LABS: COLLECTION METHOD CATHETER
[2020-06-17 11:47] LABS: MUCOUS Present /lpf; PH 5 (5-8); URINE APPEARANCE Cloudy; URINE BACTERIA Rare /hpf; URINE BILIRUBIN Negative (NEGATIVE); URINE BLOOD Negative (NEGATIVE); URINE COLOR Amber; URINE GLUCOSE Negative (NEGATIVE); URINE KETONE Negative (NEGATIVE); URINE LEUKOCYTE ESTERASE 3+ (NEGATIVE); URINE NITRATE Negative (NEGATIVE); URINE PROTEIN(semi-quant) 1+ (NEGATIVE)
[2020-06-17 11:55] LABS: URINE WBC >50 /hpf
--- NOTE | 2020-06-17 13:57 | NUR ---
Report called to BONNIE Renteria, at [facility].
--- NOTE | 2020-06-17 16:15 | NUR ---
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 Patient assisted into wheelchair. Provided all belongings and discharge packet to [facility] staff.
[2020-06-18 11:47] LABS: COLLECTION METHOD CATHETER
== END 2020-06-17 16:15 ==
LOC: COL.ER 18:21 → SURG 20:20
PROVIDERS: Emergency Medicine; Nurse Practitioner Family; ADMIT Family Medicine
DX: R07.89 Other chest pain (principal); I10 Essential (primary) hypertension; E78.5 Hyperlipidemia, unspecified; R60.0 Localized edema; G47.33 Obstructive sleep apnea (adult) (pediatric); L12.0 Bullous pemphigoid; L03.116 Cellulitis of left lower limb; E87.6 Hypokalemia; E66.01 Morbid (severe) obesity due to excess calories; R62.7 Adult failure to thrive; E55.9 Vitamin D deficiency, unspecified; R82.81 Pyuria; M19.90 Unspecified osteoarthritis, unspecified site; F41.9 Anxiety disorder, unspecified; F32.9 Major depressive disorder, single episode, unspecified; Z20.822 Contact with and (suspected) exposure to COVID-19; Z68.45 Body mass index [BMI] 70 or greater, adult; Z79.52 Long term (current) use of systemic steroids; Z86.73 Personal history of transient ischemic attack (TIA), and cerebral infarction without residual deficits; Z86.16 Personal history of COVID-19; Z99.89 Dependence on other enabling machines and devices; Z90.49 Acquired absence of other specified parts of digestive tract; Z79.899 Other long term (current) drug therapy; Z79.891 Long term (current) use of opiate analgesic
CPT/HCPCS: A9500; G0378; J2785; J7030; J7512

== ENCOUNTER 2020-08-07 20:10 | Emergency (ER) | payer MEDICARE, MEDICAID ==
[~2020-08-07] VITALS: Ht 157.5 cm; Wt 204.5 kg
[~2020-08-07 20:10] MED LIST changes: +AL-MAG HYDROX-S30 ML PO; +CELEXA 20MG20 MG/TAB PO; +CLARITIN 1010 MG/TAB PO; +CLEOCIN HCL300 MG PO; +COREG 6.256.25 MG/TA PO; +KEPPRA 500MG500 MG PO; +LASIX 40MG TABL40 MG PO; +LIPITOR20 MG PO; +MIRALAX PA17 GM/Dose PO; +MUCINEX 60600 MG/TA1 PO; +NITROSTAT0.4 MG/TAB SL; +NORCO 325 MG-51 TAB PO; +NYAMYC100000 U/G TP; +ONE-A-DAY ESSE1 EACH PO; +PRILOSEC 20MG20 MG PO; +SPRITAM500 MG PO; +TEMOVATE0.05% TP; +TRIAMCINOLONE A15 G3 TP; +TYLENOL 500MG500 MG PO; +VITAMIN D31000 I1 PO; +ZINC OXIDE 28GM TP
[2020-08-07 22:14] LABS: BASO % 0.1 % (0.0-2.0); EOS # 0.5 (0.0-0.7); EOS % 6.2 % (0-4.0); GRAN # 5.5 (1.4-6.5); GRAN % 66.6 % (42.2-75.2); HEMATOCRIT 42.9 % (37.0-47.0); HEMOGLOBIN 13.6 g/dl (12.5-16.0); LYMPH # 1.5 (1.2-3.4); LYMPH % 18.2 % (20.0-51.0); MEAN CELL VOLUME 94 fl (80.0-100.0); MEAN CORPUSCULAR HEMOGLOBIN 30 pg (27.0-31.0); MEAN CORPUSCULAR HGB CONC 32 g/dl (33.0-37.0); MEAN PLATELET VOLUME 9.5 fl (7.4-10.4); MONO # 0.7 (0.1-0.6); MONO % 8.5 % (1.7-9.3); PLATELET COUNT 218 K/mm3 (130-400); RED BLOOD COUNT 4.59 M/mm3 (4.10-5.30); REDCELL DISTRIBUTION WIDTH-CV 12.7 % (11.5-14.5)
[2020-08-07 22:28] LABS: ALBUMIN 3.1 gm/dL (3.5-5.0); BILIRUBIN,TOTAL 0.3 mg/dL (0.0-1.0); CREATININE, serum 0.64 (0.52-1.25); POTASSIUM 3.4 mmol/L (3.4-5.0)
[2020-08-07] MEDS ORDERED: PREDNISONE20 MG PO (22:28)
[2020-08-07 22:47] LABS: C-REACTIVE PROTEIN 2.5 mg/dL (0.0-0.9)
[2020-08-08 01:30] VITALS: BP 143/82; PULSE 89; TEMP 98.2
== END 2020-08-08 01:30 | disposition home or self-care (01) ==
LOC: COL.ER 20:10
PROVIDERS: Emergency Medicine
DX: L12.0 Bullous pemphigoid (principal); I11.0 Hypertensive heart disease with heart failure; E78.5 Hyperlipidemia, unspecified; E66.01 Morbid (severe) obesity due to excess calories; F32.9 Major depressive disorder, single episode, unspecified; F41.9 Anxiety disorder, unspecified; Z86.16 Personal history of COVID-19; Z86.73 Personal history of transient ischemic attack (TIA), and cerebral infarction without residual deficits; Z79.82 Long term (current) use of aspirin; Z79.899 Other long term (current) drug therapy
CPT/HCPCS: J7512

== ENCOUNTER 2020-08-18 09:33 | Emergency (ER) | payer MEDICARE, MEDICAID ==
[~2020-08-18] VITALS: Ht 157.5 cm; Wt 186.4 kg
[2020-08-18 09:40] VITALS: TEMP 98.5
[2020-08-18 10:24] LABS: HEMATOCRIT 44.2 % (37.0-47.0); HEMOGLOBIN 13.8 g/dl (12.5-16.0); MEAN CELL VOLUME 93 fl (80.0-100.0); MEAN CORPUSCULAR HEMOGLOBIN 29 pg (27.0-31.0); MEAN CORPUSCULAR HGB CONC 31 g/dl (33.0-37.0); MEAN PLATELET VOLUME 8.9 fl (7.4-10.4); PLATELET COUNT 185 K/mm3 (130-400); RED BLOOD COUNT 4.74 M/mm3 (4.10-5.30); REDCELL DISTRIBUTION WIDTH-CV 12.2 % (11.5-14.5)
[2020-08-18 10:35] LABS: ALANINE AMINOTRANSFERASE 14 U/L (4-34); ALKALINE PHOSPHATASE 90 U/L (50-136); AST,SGOT 24 U/L (15-37); BILIRUBIN,TOTAL 0.7 mg/dL (0.0-1.0); BLOOD UREA NITROGEN 16 mg/dL (7-17); CALCIUM 8.1 mg/dL (8.4-10.2); CHLORIDE 92 mmol/L (98-107); CREATININE, serum 0.76 (0.52-1.25); GLUCOSE 135 mg/dL (74-106); POTASSIUM 3.7 mmol/L (3.4-5.0); SODIUM 132 mmol/L (137-145); TOTAL PROTEIN 6.4 gm/dL (6.4-8.2)
[2020-08-18 10:42] LABS: CARBON DIOXIDE 38 mmol/L (22-30)
[2020-08-18 10:47] LABS: ANION GAP 2 mmol/L (7-16)
[2020-08-18 10:47] LABS: COLLECTION METHOD CATHETER
[2020-08-18 10:48] LABS: TROPONIN-I < 0.012 ng/mL (0.000-0.035)
[2020-08-18 10:49] LABS: BAND 10 % (0-10); EOSINOPHIL 7 % (0-4); LYMPHOCYTE 7 % (20.0-51.0); NEUTROPHILS 71 % (42.0-75.2)
[2020-08-18 10:50] LABS: PLATELET ESTIMATE NORMAL (NORMAL)
[2020-08-18 10:59] LABS: MUCOUS Present /lpf; PH 5 (5-8); SQUAMOUS EPITHELIAL 0-2 /hpf; URINE APPEARANCE Hazy; URINE BACTERIA None Seen /hpf; URINE BILIRUBIN Negative (NEGATIVE); URINE BLOOD Negative (NEGATIVE); URINE COLOR Amber; URINE GLUCOSE Negative (NEGATIVE); URINE KETONE Negative (NEGATIVE); URINE LEUKOCYTE ESTERASE Negative (NEGATIVE); URINE NITRATE Negative (NEGATIVE); URINE PROTEIN(semi-quant) 1+ (NEGATIVE); URINE RBC 0-2 /hpf
[2020-08-18 12:00] VITALS: BP 139/71; PULSE 89
== END 2020-08-18 12:07 | disposition home or self-care (01) ==
LOC: COL.ER 09:33
PROVIDERS: Emergency Medicine
DX: L12.0 Bullous pemphigoid (principal); R06.02 Shortness of breath; I10 Essential (primary) hypertension; E78.5 Hyperlipidemia, unspecified; I11.0 Hypertensive heart disease with heart failure; I50.9 Heart failure, unspecified; E66.01 Morbid (severe) obesity due to excess calories; F32.9 Major depressive disorder, single episode, unspecified; F41.9 Anxiety disorder, unspecified; Z86.16 Personal history of COVID-19; Z86.73 Personal history of transient ischemic attack (TIA), and cerebral infarction without residual deficits; Z79.82 Long term (current) use of aspirin; Z79.899 Other long term (current) drug therapy